=== PATIENT | male | born 1995 | race American Indian/Alaskan Native ===

== ENCOUNTER 2021-08-13 11:21 | Emergency (ER) | payer SELFPAY | END 2021-08-13 11:25 | disposition left against medical advice (07) | LOC: ED 11:21 | DX: H57.89 Other specified disorders of eye and adnexa (principal); Z53.21 Procedure and treatment not carried out due to patient leaving prior to being seen by health care provider ==

== ENCOUNTER 2021-11-24 05:07 | Inpatient (IN) | payer MEDICAID ==
[2021-11-24 06:16] LABS: Bilirubin,Urine NEG (Negative); Blood,Urine MOD (Negative); Color,Urine Yellow (Yellow); Mucus,Urine FEW /HPF; Urobilinogen,Urine < 2.0 mg/dL (<2.0); WBC,Urine < 1.0 /HPF (0.0-6.0)
[2021-11-24] MEDS ORDERED: SODIUM CHLORIDE 0.9% 1000 ML 1,000 ML IV ONE (06:18)
[2021-11-24 06:24] LABS: Amphetamine Screen,Urine Negative; Benzodiazepines Screen,Urine Negative; Methadone Screen,Urine Negative; Opiate Screen,Urine Negative
[2021-11-24 06:31] LABS: Hematocrit 41.3 % (35.5-45.6); Hemoglobin 13.7 gm/dl (11.8-15.2); Mean Corpuscular HGB Conc 33 % (32-34); Mean Corpuscular Volume 89 fl (84-94); Platelet Count 268 K/mm3 (140-440); Red Blood Count 4.62 M/mm3 (3.65-5.03); Red Cell Distribution Width 14.1 % (13.2-15.2)
[2021-11-24 06:36] LABS: BUN/Creatinine Ratio 9; Blood Urea Nitrogen 12 mg/dL (9-20); Hemolysis Index 11
[2021-11-24 06:47] LABS: Cannabinoid Screen,Urine Positive; Cocaine Screen,Urine Positive
--- NOTE | 2021-11-24 06:53 | XRay Report ---
Chest single view INDICATION: Dyspnea IMPRESSION: Severe bilateral airspace pneumonia concerning for sprain is pneumonia bilaterally Signer Name: Jaden Daly MD Signed: 11/24/2021 6:48 AM Workstation Name: [id number]
[2021-11-24] MEDS ORDERED: cefTRIAXone/NS 1 GM/50 ML 1 GM/50 ML BAG IV ONE (07:20)
[2021-11-24 07:42] LABS: Alanine Aminotransferase 48 units/L (7-56); Albumin 3.9 g/dL (3.9-5); BUN/Creatinine Ratio 9; Blood Urea Nitrogen 12 mg/dL (9-20); Calcium 8.4 mg/dL (8.4-10.2); Hemolysis Index 6
[2021-11-24] MEDS ORDERED: POTASSIUM CHLORIDE 10 MEQ 10 MEQ/100 ML BAG IV ONE (08:02)
--- NOTE | 2021-11-24 08:17 | Emergency Department Report ---
History of Present Illness - General Chief Complaint: Overdose Stated Complaint: OVERDOSE Time Seen by Provider: 11/24/21 06:05 Source: patient Mode of arrival: Stretcher Limitations: No Limitations - History of Present Illness Initial Comments: Roommate called EMS for unresponsive pt. Was given Narcan 2mg and woke up. Nasal trumpet on right nostril. Alert and responsive. Speech garbled. -: Gradual, days(s) Treatments Prior to Arrival: none - Related Data Allergies Allergy/AdvReac Type Severity Reaction Status Date / Time No Known Allergies Allergy Unverified 11/24/21 05:59 ED Review of Systems ROS: Stated complaint: OVERDOSE Other details as noted in HPI Constitutional: denies: chills, fever Eyes: denies: eye pain, eye discharge, vision change ENT: denies: ear pain, throat pain Respiratory: denies: cough, shortness of breath, wheezing Cardiovascular: denies: chest pain, palpitations Endocrine: no symptoms reported Gastrointestinal: denies: abdominal pain, nausea, diarrhea Genitourinary: denies: urgency, dysuria Musculoskeletal: denies: back pain, joint swelling, arthralgia Skin: denies: rash, lesions Neurological: denies: headache, weakness, paresthesias Psychiatric: denies: anxiety, depression Hematological/Lymphatic: denies: easy bleeding, easy bruising ED Past Medical Hx - Past Medical History Previous Medical History?: Yes Hx Hypertension: No Hx CVA: No Hx HIV: Yes - Surgical History Past Surgical History?: No - Social History Smoking Status: Current Every Day Smoker Substance Use Type: Marijuana ED Physical Exam - General Limitations: No Limitations General appearance: anxious, in distress - Head Head exam: Present: atraumatic, normocephalic - Eye Eye exam: Present: normal appearance - Neck Neck exam: Present: normal inspection - Respiratory Respiratory exam: Present: normal lung sounds bilaterally, rales. Absent: respiratory distress - Cardiovascular Cardiovascular Exam: Present: regular rate, normal rhythm. Absent: systolic murmur, diastolic murmur, rubs, gallop - GI/Abdominal GI/Abdominal exam: Present: soft, normal bowel sounds - Rectal Rectal exam: Present: deferred - Extremities Exam Extremities exam: Present: normal inspection - Back Exam Back exam: Present: normal inspection - Neurological Exam Neurological exam: Present: alert, oriented X3 - Psychiatric Psychiatric exam: Present: normal affect, normal mood - Skin Skin exam: Present: warm, dry, intact, normal color. Absent: rash ED Course Vital Signs 11/24/21 11/24/21 05:33 07:43 Temperature 98 F 98 F Pulse Rate 106 H 98 H Respiratory 18 18 Rate Blood Pressure 148/82 O2 Sat by Pulse 99 95 Oximetry ED Medical Decision Making - Lab Data Result diagrams: 11/24/21 06:08 11/24/21 06:30 Critical care attestation.: If time is entered above; I have spent that time in minutes in the direct care of this critically ill patient, excluding procedure time. ED Disposition Clinical Impression: Overdose, Suicide attempt, Pneumonia Disposition: 09 ADMITTED INPATIENT Is pt being admited?: No Does the pt Need Aspirin: No Condition: Stable Instructions: Bacterial Pneumonia (ED)
--- NOTE | 2021-11-24 08:22 | History and Physical Report ---
History of Present Illness Date of examination: 11/24/21 Date of admission: 11/24/2021 Chief complaint: Toxic metabolic encephalopathy/cocaine overdose History of present illness: 26-year-old male patient was brought to the emergency room with unresponsiveness and toxic metabolic encephalopathy as per ER note, patient was unresponsive in his room and his roommate called EMS who in turn brought him to [facility] emergency room. Patient was severely hypoxemic requiring high flow nasal cannula oxygen. Initially ER physician felt that patient was an intentional drug overdose When I evaluated the patient, patient was more alert and awake denies any suicidal thoughts or ideation Reports that he had a lot of stressors and consumed a lot of cocaine and marijuana. Patient denies chest pain or shortness of breath Patient denies headache dizziness weakness or numbness Initial evaluation in the ED findings consistent with acute hypoxemic respi ratory failure Requiring high flow nasal cannula oxygen 22 L. Patient has bilateral pneumonia on chest x-ray started on empiric antibiotics As well as severe hypokalemia, can be replaced per protocol Past History Past Medical History: No medical history, other (Ongoing tobacco use) Past Surgical History: No surgical history Social history: smoking, alcohol abuse, other (Recreational drug use cocaine and marijuana) Family history: no significant family history Medications and Allergies Allergies Allergy/AdvReac Type Severity Reaction Status Date / Time No Known Allergies Allergy Unverified 11/24/21 05:59 Active Meds: Active Medications Potassium Chloride (Kcl 10meq/100ml) 10 meq in 100 mls @ 100 mls/hr IV ONCE ONE Stop: 11/24/21 09:01 Review of Systems Constitutional: weight loss, no weight gain, no fever, no chills Ears, nose, mouth and throat: no nasal congestion, no nasal discharge Cardiovascular: orthopnea, shortness of breath, no chest pain, no palpitations, no lightheadedness Respiratory: shortness of breath, no cough, no cough with sputum, no excessive sputum Gastrointestinal: no nausea, no vomiting Genitourinary Male: no dysuria, no hematuria Musculoskeletal: muscle weakness Integumentary: no rash, no lesions Neurological: weakness, parathesias, numbness Psychiatric: anxiety, depression Endocrine: no cold intolerance, no heat intolerance, no polyphagia, no excessive thirst Hematologic/Lymphatic: no easy bruising, no easy bleeding Allergic/Immunologic: no urticaria, no allergic rhinitis Exam - Constitutional Vitals: Temp Pulse Resp BP Pulse Ox 98 F 98 H 18 148/82 95 11/24/21 07:43 11/24/21 07:43 11/24/21 07:43 11/24/21 05:33 11/24/21 07:43 General appearance: Present: no acute distress, cachectic, other - EENT Eyes: Present: PERRL, EOM intact - Neck Neck: Present: supple, normal ROM - Respiratory Respiratory effort: normal Respiratory: bilateral: diminished, rhonchi, negative: rales, wheezing - Cardiovascular Rhythm: regular Heart Sounds: Present: S1 & S2 - Extremities Extremities: no ischemia, No edema - Abdominal General gastrointestinal: Present: soft, non-tender, non-distended, normal bowel sounds - Integumentary Integumentary: Present: clear, warm - Musculoskeletal Musculoskeletal: generalized weakness - Psychiatric Psychiatric: appropriate mood/affect, cooperative (Confused at times) - Neurologic Neurologic: moves all extremities HEART Score - HEART Score Troponin: Troponin T 0.021 ng/mL (0.00-0.029) 11/24/21 06:30 Results - Labs CBC & Chem 7: 11/24/21 06:08 11/24/21 06:30 Labs: Abnormal lab results 11/24/21 11/24/21 11/24/21 Range/Units 06:08 06:08 06:08 WBC (4.5-11.0) K/mm3 Sodium 133 L (137-145) mmol/L Potassium 3.0 L (3.6-5.0) mmol/L Chloride 97.8 L (98-107) mmol/L Carbon Dioxide 21 L (22-30) mmol/L Glucose 320 H (75-100) mg/dL Lactic Acid (0.7-2.0) mmol/L Calcium 8.0 L (8.4-10.2) mg/dL AST (5-40) units/L Total Creatine Kinase (55-170) units/L Total Protein (6.3-8.2) g/dL Salicylates < 0.3 L (2.8-20.0) mg/dL Acetaminophen 5.0 L (10.0-30.0) ug/mL 11/24/21 11/24/21 11/24/21 Range/Units 06:08 06:30 06:30 WBC 13.5 H (4.5-11.0) K/mm3 Sodium (137-145) mmol/L Potassium 2.8 L* (3.6-5.0) mmol/L Chloride (98-107) mmol/L Carbon Dioxide (22-30) mmol/L Glucose 267 H (75-100) mg/dL Lactic Acid 4.60 H* (0.7-2.0) mmol/L Calcium (8.4-10.2) mg/dL AST 78 H (5-40) units/L Total Creatine Kinase 441 H (55-170) units/L Total Protein 9.8 H (6.3-8.2) g/dL Salicylates (2.8-20.0) mg/dL Acetaminophen (10.0-30.0) ug/mL Assessment and Plan --Acute hypoxic respiratory failure; On high flow nasal cannula oxygen 22 L Wean as tolerated, home O2 evaluation at discharge Pulmonary consulted informed Dr. Parry. --Bilateral pneumonia; probably community-acquired Empiric antibiotics Rocephin and Zithromax Blood cultures, rule out COVID-19 Mi PCR requested --PUI; high suspicion for COVID-19 Droplet and contact isolation Mi PCR test, Inflammatory markers Procalcitonin --Intentional drug overdose/suicidal attempt/patient denied Patient reports that he was under a lot of stress And took a lot of cocaine, Denies suicidal thoughts or ideation Psych evaluated the patient, discontinued 1013 --Cocaine overdose; Supportive care, Counseling done strongly advised not to use Recreational drug use, Patient verbalized understanding --Hyperglycemia; No history of diabetes, Accu-Cheks sliding scale coverage Hemoglobin A1c, long-acting insulin as needed --Severe hypokalemia; potassium 2.8 Replenished with IV and oral KCl check magnesium Monitor electrolytes --Ongoing tobacco use; Smoking cessation counseling done Advised nicotine patch Risks and complications and side effects of ongoing tobacco use explained to the patient He verbalized understanding, spending 15 minutes --Recreational drug use[cocaine, marijuana]; Strongly advised to quit recreational drug use cocaine and marijuana Patient verbalized understanding --DVT prophylaxis Subcu Lovenox Psych evaluation and recommendation appreciated Rescinded 1013 status Follow mi PCR test We will closely monitor the patient and adjust management as needed Plan of care reviewed with the patient and his nurse. Follow pulmonary advertising consultant recommendations Brief history and hospital course 11/25/2019 :26-year-old -[place] male patient was admitted through emergency room with acute toxic metabolic encephalopathy, cocaine overdose Severe hypoxemic respiratory failure on high flow nasal cannula oxygen, bilateral pneumonia, mi PCR test sent pending, pulmonary consulted Disposition; follow pulmonary evaluation recommendations, follow pending tests discharge patient when medically stable
--- NOTE | 2021-11-24 08:34 | Consultation ---
History of Present Illness - Reason for Consult Consult date: 11/24/21 Reason for consult: Cocaine OD - History of Present Psychiatric Illness The patient was seen today. He was brought in after being found unresponsive. During the evaluation of the patient is awake, but drowsy. His friend is at bedside. He gives me permission to speak in front of him. The patient verbalized using cocaine. He denies trying to do self harm, but states he "was getting high." The patient denies any past psych history or being on psych meds. He does admit that this has happened before where he's taking too much cocaine. He states "but I wasn't trying to kill myself at all." He denies SI/HI or hallucinations of any kind. He denies alcohol and says he smokes "like 4 cigarets daily." The patient says he "lives with his friend." PAST PSYCHIATRIC HISTORY Diagnoses: Denies Suicide attempts or Self-harm behavior: Denies Prior psychiatric hospitalizations: Denies Substance Abuse history: Cocaine Previous psychiatric medications tried: Denies Outpatient treatment: Denies PAST MEDICAL HISTORY: None reported Family Psychiatric History: None reported or documented SOCIAL HISTORY Living arrangement: with friend Marital status: Single Employment status: Employed REVIEW OF SYSTEMS Constitutional: Negative for weight loss ENT: Negative for stridor Respiratory: Negative for cough or hemoptysis All other systems reviewed and are negative MENTAL STATUS EXAMINATION General Appearance and Behavior: Age appropriate, good hygiene, wearing appropriate clothes, good eye contact, calm, cooperative, drowsy Cooperation: Participating/engaged, but Guarded Psychomotor Behavior: Psychomotor normal Mood: okay Affect and affective range: congruent with stated mood Thought Process: goal directed Thought Content: None Speech: normal tone and pace Suicidal Ideation: Denies Homicidal Ideation: Denies Hallucinations: Denies Delusions: None elicited Impulse Control: Normal Insight and Judgment: Limited insight and judgment Memory: Limited Attention: divided Orientation: Alert, oriented Assessment and Plan Cocaine Dependence with Overdose Treatment Plan d/c 1013 Sitter: per primary Medical: defer to primary Disposition: Do not recommend acute psychiatric inpatient treatment. The multiple tube winding machine operator to give the patient resources for drug rehab The patient to abstain from all illicit drug use Will sing off. Thanks Case staffed with Dr. Mcbride Medications and Allergies Allergies Allergy/AdvReac Type Severity Reaction Status Date / Time No Known Allergies Allergy Unverified 11/24/21 05:59 Active Meds: Active Medications Potassium Chloride (Kcl 10meq/100ml) 10 meq in 100 mls @ 100 mls/hr IV ONCE ONE Stop: 11/24/21 09:01 Last Admin: 11/24/21 08:27 Dose: 100 mls/hr Mental Status Exam - Vital signs Last Vital Signs Temp 98 F 11/24/21 07:43 Pulse 98 H 11/24/21 07:43 Resp 18 11/24/21 07:43 BP 148/82 11/24/21 05:33 Pulse Ox 95 11/24/21 07:43 Results Result Diagrams: 11/24/21 06:08 11/24/21 06:30 Abnormal lab results 11/24/21 11/24/21 11/24/21 Range/Units 06:08 06:08 06:08 WBC (4.5-11.0) K/mm3 Sodium 133 L (137-145) mmol/L Potassium 3.0 L (3.6-5.0) mmol/L Chloride 97.8 L (98-107) mmol/L Carbon Dioxide 21 L (22-30) mmol/L Glucose 320 H (75-100) mg/dL Lactic Acid (0.7-2.0) mmol/L Calcium 8.0 L (8.4-10.2) mg/dL AST (5-40) units/L Total Creatine Kinase (55-170) units/L Total Protein (6.3-8.2) g/dL Salicylates < 0.3 L (2.8-20.0) mg/dL Acetaminophen 5.0 L (10.0-30.0) ug/mL 11/24/21 11/24/21 11/24/21 Range/Units 06:08 06:30 06:30 WBC 13.5 H (4.5-11.0) K/mm3 Sodium (137-145) mmol/L Potassium 2.8 L* (3.6-5.0) mmol/L Chloride (98-107) mmol/L Carbon Dioxide (22-30) mmol/L Glucose 267 H (75-100) mg/dL Lactic Acid 4.60 H* (0.7-2.0) mmol/L Calcium (8.4-10.2) mg/dL AST 78 H (5-40) units/L Total Creatine Kinase 441 H (55-170) units/L Total Protein 9.8 H (6.3-8.2) g/dL Salicylates (2.8-20.0) mg/dL Acetaminophen (10.0-30.0) ug/mL All other labs normal.
[2021-11-24 08:52] LABS: ABG HCO3 21.9 mmol/L (20.0-26.0); ABG Methemoglobin 0.6 % (0.0-1.5); ABG Oxygen Saturation 84.4 % (95.0-99.0); ABG PCO2 57.4 mm Hg; ABG PO2 56.1 mm Hg (80.0-90.0)
[2021-11-24 08:59] LABS: ABG PH 7.199 pH Units (7.350-7.450)
[2021-11-24 09:07] LABS: Band Neutrophils # (Manual) 0.8 K/mm3; Basophils % (Manual) 0 % (0.0-1.8); Eosinophils % (Manual) 0 % (0.0-4.3); Myelocytes # (Manual) 0.1 K/mm3; Total Cells Counted 100
[2021-11-24 09:08] LABS: Platelet Clumps Few; Platelet Estimate Consistent w Auto
[2021-11-24] MEDS ORDERED: SODIUM CHLORIDE 0.9% 1000 ML 1,000 ML IV SCH (10:00)
[2021-11-24] MEDS ORDERED: MORPHINE 4 MG/1 ML INJ IV PRN (10:00)
[2021-11-24] MEDS ORDERED: oxyCODONE /ACETAMINOPHEN 5-325MG TAB PO PRN (10:00)
[2021-11-24] MEDS ORDERED: ACETAMINOPHEN 325 MG TAB PO PRN (10:00)
[2021-11-24] MEDS ORDERED: NALOXONE 0.4 MG/1 ML INJ IV PRN (10:00)
[2021-11-24] MEDS ORDERED: ONDANSETRON 4 MG/2 ML INJ IV PRN ×2 (10:00→17:31)
[2021-11-24] MEDS: AZITHROMYCIN/NS 500 MG/250 ML 500 MG/250 ML BAG IV SCH (13:35)
[2021-11-24] MEDS: ENOXAPARIN 40 MG/0.4 ML INJ SUB-Q SCH (13:36)
[2021-11-24] MEDS: FAMOTIDINE 20 MG/2 ML INJ IV SCH ×2 (13:36→22:52)
[2021-11-24] MEDS ORDERED: POTASSIUM CHLORIDE ER 20 MEQ TAB PO SCH (14:00)
[2021-11-24] MEDS ORDERED: CALCIUM GLUCONATE 1,000 MG in SODIUM CHLORIDE 0.9% 100 ML IV ONE (17:27)
--- NOTE | 2021-11-24 17:36 | Event Note ---
Date: 11/24/21 Patient complains of some nausea and vomiting, advised Zofran 4 mg every 4 hours as needed for nausea vomiting Potassium levels 6.1, probably verbal correction, calcium gluconate 1 g IV, closely monitor electrolytes Patient remains on high flow nasal cannula oxygen, 22 L, saturating well Mi PCR test is negative. Pulmonary Dr. Parry consulted. We will closely monitor the patient and adjust the management as needed We will plan follow-up chest x-ray tomorrow morning if needed Plan of care reviewed with the patient and his nurse
[2021-11-24 18:08] LABS: C-Reactive Protein < 0.30 mg/dL (0.00-1.30)
[2021-11-24 18:33] LABS: ABG Base Excess -3.7 mmol/L (-2.0-3.0); ABG HCO3 20.4 mmol/L (20.0-26.0); ABG Methemoglobin 0.6 % (0.0-1.5); ABG Oxygen Saturation 97.1 % (95.0-99.0); ABG PCO2 34.3 mm Hg; ABG PH 7.392 pH Units (7.350-7.450); ABG PO2 94.8 mm Hg (80.0-90.0)
--- NOTE | 2021-11-24 21:05 | Cat Scan Report ---
CTA CHEST WITH CONTRAST INDICATION / CLINICAL INFORMATION: Ac.hypoxic resp failure/elevated D-dimer/r/o PE. TECHNIQUE: Axial CT images were obtained through the chest after injection of 100 cc of Omnipaque 350 IV contrast. 3 plane MIP and/or 3D reconstructions were produced. All CT scans at this location are performed using CT dose reduction for ALARA by means of automated exposure control. COMPARISON: Chest radiograph dated 11/24/2021 FINDINGS: PULMONARY ARTERIES: No pulmonary emboli. THORACIC AORTA: No significant abnormality. HEART: No significant abnormality. CORONARY ARTERY CALCIFICATION: None. MEDIASTINUM / KRISS: No significant abnormality. PLEURA: No pleural effusion. No pneumothorax. LUNGS: There are extensive bilateral airspace opacities involving upper and lower lobes predominantly with small amount of airspace opacity in the right middle lobe. ADDITIONAL FINDINGS: None. UPPER ABDOMEN: No acute findings. SKELETAL STRUCTURES: No acute abnormality IMPRESSION: 1. There are diffuse bilateral airspace opacities likely representing pneumonia. Possibility of aspir ation is considered. 2. No pulmonary embolus is seen. Signer Name: Cesar Mcbride MD Signed: 11/24/2021 9:01 PM Workstation Name: [id number]
[2021-11-24] MEDS: INSULIN LISPRO 100 UNIT/ML SUB-Q SCH (22:51)
[2021-11-24] MEDS: methylPREDNISolone Sod Succinate 40 MG/1 ML INJ IV SCH (22:52)
[2021-11-25] MEDS: methylPREDNISolone Sod Succinate 40 MG/1 ML INJ IV SCH (05:39)
[2021-11-25] MEDS: INSULIN LISPRO 100 UNIT/ML SUB-Q SCH ×4 (08:00→22:00)
[2021-11-25 09:12] LABS: Hematocrit 36.1 % (35.5-45.6); Hemoglobin 12.2 gm/dl (11.8-15.2); Mean Corpuscular HGB Conc 34 % (32-34); Mean Corpuscular Volume 88 fl (84-94); Platelet Count 220 K/mm3 (140-440); Red Blood Count 4.12 M/mm3 (3.65-5.03); Red Cell Distribution Width 14.1 % (13.2-15.2)
[2021-11-25 09:33] LABS: Alanine Aminotransferase 38 units/L (7-56); Albumin 3.4 g/dL (3.9-5); BUN/Creatinine Ratio 13; Blood Urea Nitrogen 15 mg/dL (9-20); Calcium 8.6 mg/dL (8.4-10.2); Hemolysis Index 6
[2021-11-25 10:02] LABS: Band Neutrophils # (Manual) 1.2 K/mm3; Basophils % (Manual) 0 % (0.0-1.8); Eosinophils % (Manual) 0 % (0.0-4.3); Monocytes % (Manual) 0 % (0.0-7.3); Total Cells Counted 100
[2021-11-25 10:03] LABS: Platelet Estimate Consistent w Auto; RBC Morphology Normal
--- NOTE | 2021-11-25 11:14 | Consultation ---
History of Present Illness Consult date: 11/25/21 Reason for consult: hypoxemia, abnormal CXR/CT History of present illness: 26 y/o aAM admitted with acute respiratory failure. Patient was doing cocaine, THC and Percocet. UDS only positive for Cocaine. Was doing drugs with roommate. He then passed out and woke up in ED. Was doing drugs as his partner is incarcerated and he is stressed about this. He does have HIV and TB. Currently Bictarvy. He has never overdosed on drugs before and he is not trying to hurt himself or any one else. he does suffer from depression. Past History Past Medical History: No medical history, HIV/AIDS, other (depression, polystubstance abuse) Past Surgical History: No surgical history Social history: smoking, alcohol abuse, other (Recreational drug use cocaine and marijuana) Family history: no significant family history Medications and Allergies Allergies Allergy/AdvReac Type Severity Reaction Status Date / Time No Known Allergies Allergy Unverified 11/24/21 05:59 Active Meds: Active Medications Acetaminophen (Acetaminophen 325 Mg Tab) 650 mg PO Q4H PRN PRN Reason: Pain MILD(1-3)/Fever >100.5/BLACK Enoxaparin Sodium (Enoxaparin 40 Mg/0.4 Ml Inj) 40 mg SUB-Q QDAY [facility] Last Admin: 11/24/21 13:36 Dose: 40 mg Famotidine (Famotidine 20 Mg/2 Ml Inj) 20 mg IV BID [facility] Last Admin: 11/24/21 22:52 Dose: 20 mg Sodium Chloride (Nacl 0.9% 1000 Ml) 1,000 mls @ 75 mls/hr IV DIRECT [facility] Last Admin: 11/25/21 01:37 Dose: 75 mls/hr Azithromycin (Zithromax/Ns) 500 mg in 250 mls @ 250 mls/hr IV Q24H [facility] Stop: 11/28/21 11:59 Last Admin: 11/24/21 13:35 Dose: 250 mls/hr Ceftriaxone Sodium (Rocephin/Ns 2 Gm/100 Ml) 2 gm in 100 mls @ 200 mls/hr IV Q24HR [facility]OMA; Protocol Insulin Human Lispro (Insulin Lispro 100 Unit/Ml) 0 unit SUB-Q ACHS [facility]OMA; Prot ocol Last Admin: 11/24/21 22:51 Dose: Not Given Methylprednisolone Sodium Succinate (Methylprednisolone Sod Succinate 40 Mg/1 Ml Inj) 40 mg IV Q8HR [facility] Last Admin: 11/25/21 05:39 Dose: 40 mg Morphine Sulfate (Morphine 4 Mg/1 Ml Inj) 2 mg IV Q4H PRN PRN Reason: Pain , Severe (7-10) Naloxone HCl (Naloxone 0.4 Mg/1 Ml Inj) 0.1 mg IV Q2MIN PRN PRN Reason: Res Rate </= 8 or 02 SAT < 92% Ondansetron HCl (Ondansetron 4 Mg/2 Ml Inj) 4 mg IV Q4H PRN PRN Reason: Nausea And Vomiting Oxycodone/Acetaminophen (Oxycodone /Acetaminophen 5-325mg Tab) 1 tab PO Q6H PRN PRN Reason: Pain, Moderate (4-6) Sodium Chloride (Sodium Chloride 0.9% 10 Ml Flush Syringe) 10 ml IV BID [facility] Last Admin: 11/24/21 22:52 Dose: 10 ml Sodium Chloride (Sodium Chloride 0.9% 10 Ml Flush Syringe) 10 ml IV PRN PRN PRN Reason: LINE FLUSH Review of Systems All systems: negative Ears, nose, mouth and throat: deferred Respiratory: shortness of breath Integumentary: other (bump on forehead, persistent) Physical Examination Vital signs: Vital Signs Temp Pulse Resp BP Pulse Ox 98 F 106 H 18 148/82 99 11/24/21 05:33 11/24/21 05:33 11/24/21 05:33 11/24/21 05:33 11/24/21 05:33 General appearance: no acute distress, alert, other (wants to go home) Eyes: non-icteric ENT: oropharynx moist Neck: supple Effort: normal Ascultation: Bilateral: rales Percussion: Bilateral: not dull Tactile fremitus: Bilateral: diminished Cardiovascular: regular rate and rhythm Gastrointestinal: normoactive bowel sounds Results - Laboratory Findings CBC and BMP: 11/25/21 08:51 11/25/21 08:51 ABG ABG pH 7.392 pH Units (7.350-7.450) 11/24/21 18:15 ABG pCO2 34.3 mm Hg 11/24/21 18:15 ABG pO2 94.8 mm Hg (80.0-90.0) H 11/24/21 18:15 ABG O2 Saturation 97.1 % (95.0-99.0) 11/24/21 18:15 PT/INR, D-dimer PT 14.3 Sec. (12.2-14.9) 11/24/21 06:30 INR 1.00 (0.87-1.13) 11/24/21 06:30 D-Dimer 571.39 ng/mlDDU (0-234) H 11/24/21 18:25 Abnormal lab findings: Abnormal Labs 11/24/21 11/24/21 11/24/21 06:08 06:08 06:08 WBC Seg Neuts % (Manual) Lymphocytes % (Manual) Seg Neutrophils # Man Lymphocytes # (Manual) D-Dimer ABG pH ABG pO2 ABG O2 Saturation ABG Base Excess Oxyhemoglobin Sodium 133 L Potassium 3.0 L Chloride 97.8 L Carbon Dioxide 21 L Glucose 320 H POC Glucose Lactic Acid Calcium 8.0 L AST Lactate Dehydrogenase Total Creatine Kinase Total Protein Albumin Salicylates < 0.3 L Acetaminophen 5.0 L 11/24/21 11/24/21 11/24/21 06:08 06:30 06:30 WBC 13.5 H Seg Neuts % (Manual) 87.0 H Lymphocytes % (Manual) 4.0 L Seg Neutrophils # Man 11.7 H Lymphocytes # (Manual) 0.5 L D-Dimer ABG pH ABG pO2 ABG O2 Saturation ABG Base Excess Oxyhemoglobin Sodium Potassium 2.8 L* Chloride Carbon Dioxide Glucose 267 H POC Glucose Lactic Acid 4.60 H* Calcium AST 78 H Lactate Dehydrogenase Total Creatine Kinase 441 H Total Protein 9.8 H Albumin Salicylates Acetaminophen 11/24/21 11/24/21 11/24/21 06:30 08:20 09:09 WBC Seg Neuts % (Manual) Lymphocytes % (Manual) Seg Neutrophils # Man Lymphocytes # (Manual) D-Dimer ABG pH 7.199 L* ABG pO2 56.1 L ABG O2 Saturation 84.4 L ABG Base Excess -7.0 L Oxyhemoglobin 80.8 L Sodium Potassium Chloride Carbon Dioxide Glucose POC Glucose Lactic Acid 5.10 H* Calcium AST Lactate Dehydrogenase 300 H Total Creatine Kinase Total Protein Albumin Salicylates Acetaminophen 11/24/21 11/24/21 11/24/21 16:33 16:33 18:15 WBC Seg Neuts % (Manual) Lymphocytes % (Manual) Seg Neutrophils # Man Lymphocytes # (Manual) D-Dimer ABG pH ABG pO2 94.8 H ABG O2 Saturation ABG Base Excess -3.7 L Oxyhemoglobin Sodium Potassium 6.1 H* D Chloride Carbon Dioxide Glucose POC Glucose Lactic Acid 2.10 H* Calcium AST Lactate Dehydrogenase Total Creatine Kinase Total Protein Albumin Salicylates Acetaminophen 11/24/21 11/24/21 11/24/21 18:25 22:50 23:26 WBC Seg Neuts % (Manual) Lymphocytes % (Manual) Seg Neutrophils # Man Lymphocytes # (Manual) D-Dimer 571.39 H ABG pH ABG pO2 ABG O2 Saturation ABG Base Excess Oxyhemoglobin Sodium Potassium Chloride Carbon Dioxide Glucose POC Glucose 139 H Lactic Acid 2.40 H* Calcium AST Lactate Dehydrogenase Total Creatine Kinase Total Protein Albumin Salicylates Acetaminophen 11/25/21 11/25/21 11/25/21 07:36 08:51 08:51 WBC 11.5 H Seg Neuts % (Manual) 84.0 H Lymphocytes % (Manual) 6.0 L Seg Neutrophils # Man 9.7 H Lymphocytes # (Manual) 0.7 L D-Dimer ABG pH ABG pO2 ABG O2 Saturation ABG Base Excess Oxyhemoglobin Sodium 135 L Potassium Chloride Carbon Dioxide Glucose 148 H POC Glucose 151 H Lactic Acid Calcium AST Lactate Dehydrogenase Total Creatine Kinase Total Protein 8.5 H Albumin 3.4 L Salicylates Acetaminophen - Diagnostic Findings Chest x-ray: image reviewed CT scan - chest: image reviewed Assessment and Plan 26 y/o male with known HIV and currently on treatment for TB admitted with acute respiratory failure secondary to likely aspiration after drug use, not trying to harm himself 1. Stopped steroids 2. Wean FiO2 for sats >88% 3. Resume HIV therapy and TB therapy 4. If abx are felt to be needed, suggest using something with better anaerobic coverage 5. Incentive gisel, OOB to chair, ambulate in room 6. Will continue to follow.
--- NOTE | 2021-11-25 12:39 | Progress Note ---
Assessment and Plan Assessment and plan: 26-year-old male patient was brought to the emergency room with unresponsiveness and toxic metabolic encephalopathy as per ER note, patient was unresponsive in his room and his roommate called EMS who in turn brought him to [facility] emergency room. Patient was severely hypoxemic requiring high flow nasal cannula oxygen. Initially ER physician felt that patient was an intentional drug overdose When I evaluated the patient, patient was more alert and awake denies any suicidal thoughts or ideation Reports that he had a lot of stressors and consumed a lot of cocaine and mariju olimpia. Patient denies chest pain or shortness of breath Patient denies headache dizziness weakness or numbness Initial evaluation in the ED findings consistent with acute hypoxemic respiratory failure Requiring high flow nasal cannula oxygen 22 L. Patient has bilateral pneumonia on chest x-ray started on empiric antibiotics As well as severe hypokalemia, can be replaced per protocol 11/25/2019 :26-year-old -[place] male patient was admitted through emergency room with acute toxic metabolic encephalopathy, cocaine overdose Severe hypoxemic respiratory failure on high flow nasal cannula oxygen, bilateral pneumonia, mi PCR test sent pending, pulmonary consulted 11/25: Patient seen by pulmonary team. Information available to us this morning states that the patient is currently undergoing treatment for tuberculosis. We will proceed with consulting ID along with following plan by pulmonary. Continue to wean oxygen as tolerated incentive spirometer. Continue HIV treatment and management. Continue isolation precautions. Lactic acidosis improved Disposition; follow pulmonary evaluation recommendations, follow pending tests discharge patient when medically stable --Acute hypoxic respiratory failure; On high flow nasal cannula oxygen 22 L Wean as tolerated, home O2 evaluation at discharge Pulmonary consulted informed Dr. Parry. --Bilateral pneumonia; probably community-acquired Empiric antibiotics Rocephin and Zithromax Blood cultures, rule out COVID-19 Mi PCR requested --PUI; high suspicion for COVID-19 Droplet and contact isolation Mi PCR test, Inflammatory markers Procalcitonin --Intentional drug overdose/suicidal attempt/patient denied Patient reports that he was under a lot of stress And took a lot of cocaine, Denies suicidal thoughts or ideation Psych evaluated the patient, discontinued 1013 --Cocaine overdose; Supportive care, Counseling done strongly advised not to use Recreational drug use, Patient verbalized understanding --Hyperglycemia; No history of diabetes, Accu-Cheks sliding scale coverage Hemoglobin A1c, long-acting insulin as needed --Severe hypokalemia; potassium 2.8 Replenished with IV and oral KCl check magnesium Monitor electrolytes --Ongoing tobacco use; Smoking cessation counseling done Advised nicotine patch Risks and complications and side effects of ongoing tobacco use explained to the patient He verbalized understanding, spending 15 minutes --Recreational drug use[cocaine, marijuana]; Strongly advised to quit recreational drug use cocaine and marijuana Patient verbalized understanding --DVT prophylaxis Subcu Lovenox Psych evaluation and recommendation appreciated Rescinded 1013 status Follow mi PCR test We will closely monitor the patient and adjust management as needed Plan of care reviewed with the patient and his nurse. Follow pulmonary homemaking rehabilitation consultant recommendations Mi PCR test is negative Elevated D-dimers; check CTA chest to rule out PE urgent Lower extremity venous Doppler to rule out DVT in the morning Patient will be admitted to telemetry floor Discussed with nurse, but controlled The high probability of a clinically significant, sudden or life threatening deterioration of the [pulmonary] system(s) required my full and direct attention, intervention and personal management. The aggregate critical care ti me was [35] minutes. This time is in addition to time spent performing reported procedures but includes the following: [x] Data Review and interpretation [x] Patient assessment and monitoring of vital signs [x] Documentation [x] Medication orders and management History Interval history: Patient seen and examined this morning not in any acute distress although still on high flow at 35 L and 70% Hospitalist Physical - Physical exam Narrative exam: VITAL SIGNS: Reviewed. GENERAL: The patient appears normally developed, Vital signs as documented. HEAD: No signs of head trauma. EYES: Pupils are equal. Extraocular motions intact. EARS: Hearing grossly intact. MOUTH: Oropharynx is normal. NECK: No adenopathy, no JVD. CHEST: Chest with clear breath sounds bilaterally. No wheezes, rales, or rhonchi. CARDIAC: Regular rate and rhythm. S1 and S2, without murmurs, gallops, or rubs. VASCULAR: No Edema. Peripheral pulses normal and equal in all extremities. ABDOMEN: Soft, non tender and non distended. No rebound or guarding, and no masses palpated. Bowel Sounds normal. MUSCULOSKELETAL: Good range of motion of all major joints. Extremities without clubbing, cyanosis or edema. NEUROLOGIC EXAM: Alert and oriented x 3 No focal sensory or strength deficits. Speech normal. Follows commands. PSYCHIATRIC: Mood normal. SKIN: detail exam as documented in skin assessment - Constitutional Vitals: Temp Pulse Resp BP Pulse Ox 99.0 F 90 16 128/33 96 11/25/21 11:35 11/25/21 11:35 11/25/21 11:35 11/25/21 11:35 11/25/21 11:35 General appearance: Present: no acute distress, cachectic, other HEART Score - HEART Score Troponin: Troponin T 0.021 ng/mL (0.00-0.029) 11/24/21 06:30 Results - Labs CBC & Chem 7: 11/25/21 08:51 11/25/21 08:51 Labs: Laboratory Last Values WBC 11.5 K/mm3 (4.5-11.0) H 11/25/21 08:51 RBC 4.12 M/mm3 (3.65-5.03) 11/25/21 08:51 Hgb 12.2 gm/dl (11.8-15.2) 11/25/21 08:51 Hct 36.1 % (35.5-45.6) 11/25/21 08:51 MCV 88 fl (84-94) 11/25/21 08:51 MCH 30 pg (28-32) 11/25/21 08:51 MCHC 34 % (32-34) 11/25/21 08:51 RDW 14.1 % (13.2-15.2) 11/25/21 08:51 Plt Count 220 K/mm3 (140-440) 11/25/21 08:51 Add Manual Diff Complete 11/25/21 08:51 Total Counted 100 11/25/21 08:51 Seg Neutrophils % Deputy Editor In Chief 11/25/21 08:51 Seg Neuts % (Manual) 84.0 % (40.0-70.0) H 11/25/21 08:51 Band Neutrophils % 10.0 % 11/25/21 08:51 Lymphocytes % (Manual) 6.0 % (13.4-35.0) L 11/25/21 08:51 Reactive Lymphs % (Man) 0 % 11/25/21 08:51 Monocytes % (Manual) 0 % (0.0-7.3) 11/25/21 08:51 Eosinophils % (Manual) 0 % (0.0-4.3) 11/25/21 08:51 Basophils % (Manual) 0 % (0.0-1.8) 11/25/21 08:51 Metamyelocytes % 0 % 11/25/21 08:51 Myelocytes % 0 % 11/25/21 08:51 Promyelocytes % 0 % 11/25/21 08:51 Blast Cells % 0 % 11/25/21 08:51 Nucleated RBC % Not Reportable 11/25/21 08:51 Seg Neutrophils # Man 9.7 K/mm3 (1.8-7.7) H 11/25/21 08:51 Band Neutrophils # 1.2 K/mm3 11/25/21 08:51 Lymphocytes # (Manual) 0.7 K/mm3 (1.2-5.4) L 11/25/21 08:51 Abs React Lymphs (Man) 0.0 K/mm3 11/25/21 08:51 Monocytes # (Manual) 0.0 K/mm3 (0.0-0.8) 11/25/21 08:51 Eosinophils # (Manual) 0.0 K/mm3 (0.0-0.4) 11/25/21 08:51 Basophils # (Manual) 0.0 K/mm3 (0.0-0.1) 11/25/21 08:51 Metamyelocytes # 0.0 K/mm3 11/25/21 08:51 Myelocytes # 0.0 K/mm3 11/25/21 08:51 Promyelocytes # 0.0 K/mm3 11/25/21 08:51 Blast Cells # 0.0 K/mm3 11/25/21 08:51 WBC Morphology Not Reportable 11/25/21 08:51 Hypersegmented Neuts Not Reportable 11/25/21 08:51 Hyposegmented Neuts Not Reportable 11/25/21 08:51 Hypogranular Neuts Not Reportable 11/25/21 08:51 Smudge Cells Not Reportable 11/25/21 08:51 Toxic Granulation Not Reportable 11/25/21 08:51 Toxic Vacuolation Not Reportable 11/25/21 08:51 Dohle Bodies Not Reportable 11/25/21 08:51 Pelger-Huet Anomaly Not Reportable 11/25/21 08:51 Trae Rods Not Reportable 11/25/21 08:51 Platelet Estimate Consistent w auto 11/25/21 08:51 Clumped Platelets Not Reportable 11/25/21 08:51 Plt Clumps, EDTA Not Reportable 11/25/21 08:51 Large Platelets Not Reportable 11/25/21 08:51 Giant Platelets Not Reportable 11/25/21 08:51 Platelet Satelliting Not Reportable 11/25/21 08:51 Plt Morphology Comment Not Reportable 11/25/21 08:51 RBC Morphology Normal 11/25/21 08:51 Dimorphic RBCs Not Reportable 11/25/21 08:51 Polychromasia Not Reportable 11/25/21 08:51 Hypochromasia Not Reportable 11/25/21 08:51 Poikilocytosis Not Reportable 11/25/21 08:51 Anisocytosis Not Reportable 11/25/21 08:51 Microcytosis Not Reportable 11/25/21 08:51 Macrocytosis Not Reportable 11/25/21 08:51 Spherocytes Not Reportable 11/25/21 08:51 Pappenheimer Bodies Not Reportable 11/25/21 08:51 Sickle Cells Not Reportable 11/25/21 08:51 Target Cells Not Reportable 11/25/21 08:51 Tear Drop Cells Not Reportable 11/25/21 08:51 Ovalocytes Not Reportable 11/25/21 08:51 Helmet Cells Not Reportable 11/25/21 08:51 [place] Bodies Not Reportable 11/25/21 08:51 [place] Rings Not Reportable 11/25/21 08:51 [place] Cells Not Reportable 11/25/21 08:51 Bite Cells Not Reportable 11/25/21 08:51 Crenated Cell Not Reportable 11/25/21 08:51 Elliptocytes Not Reportable 11/25/21 08:51 Acanthocytes (Spur) Not Reportable 11/25/21 08:51 Rouleaux Not Reportable 11/25/21 08:51 Hemoglobin C Crystals Not Reportable 11/25/21 08:51 Schistocytes Not Reportable 11/25/21 08:51 Malaria parasites Not Reportable 11/25/21 08:51 Chris Bodies Not Reportable 11/25/21 08:51 Hem Pathologist Commnt No 11/25/21 08:51 PT 14.3 Sec. (12.2-14.9) 11/24/21 06:30 INR 1.00 (0.87-1.13) 11/24/21 06:30 D-Dimer 571.39 ng/mlDDU (0-234) H 11/24/21 18:25 ABG pH 7.392 pH Units (7.350-7.450) 11/24/21 18:15 ABG pCO2 34.3 mm Hg 11/24/21 18:15 ABG pO2 94.8 mm Hg (80.0-90.0) H 11/24/21 18:15 ABG HCO3 20.4 mmol/L (20.0-26.0) 11/24/21 18:15 ABG O2 Saturation 97.1 % (95.0-99.0) 11/24/21 18:15 ABG O2 Content 18.8 (0.0-44) 11/24/21 18:15 ABG Base Excess -3.7 mmol/L (-2.0-3.0) L 11/24/21 18:15 ABG Hemoglobin 14.0 gm/dl (14.0-18.0) 11/24/21 18:15 ABG Carboxyhemoglobin 1.0 % (0.0-5.0) 11/24/21 18:15 ABG Methemoglobin 0.6 % (0.0-1.5) 11/24/21 18:15 Oxyhemoglobin 95.5 % (95.0-99.0) 11/24/21 18:15 FiO2 100 % 11/24/21 18:15 Sodium 135 mmol/L (137-145) L 11/25/21 08:51 Potassium 4.4 mmol/L (3.6-5.0) 11/25/21 08:51 Chloride 101.7 mmol/L (98-107) 11/25/21 08:51 Carbon Dioxide 25 mmol/L (22-30) 11/25/21 08:51 Anion Gap 13 mmol/L 11/25/21 08:51 BUN 15 mg/dL (9-20) 11/25/21 08:51 Creatinine 1.2 mg/dL (0.8-1.3) 11/25/21 08:51 Estimated GFR > 60 ml/min 11/25/21 08:51 BUN/Creatinine Ratio 13 % 11/25/21 08:51 Glucose 148 mg/dL (75-100) H 11/25/21 08:51 POC Glucose 147 mg/dL (70-105) H 11/25/21 11:33 Lactic Acid 1.60 mmol/L (0.7-2.0) 11/25/21 08:51 Calcium 8.6 mg/dL (8.4-10.2) 11/25/21 08:51 Magnesium 1.70 mg/dL (1.7-2.3) 11/24/21 16:33 Ferritin 210.2 ng/mL (30.0-300.0) 11/24/21 06:30 Total Bilirubin 0.60 mg/dL (0.1-1.2) 11/25/21 08:51 AST 35 units/L (5-40) 11/25/21 08:51 ALT 38 units/L (7-56) 11/25/21 08:51 Alkaline Phosphatase 57 units/L (35-129) 11/25/21 08:51 Lactate Dehydrogenase 300 units/L (91-180) H 11/24/21 06:30 Total Creatine Kinase 441 units/L (55-170) H 11/24/21 06:30 Troponin T 0.021 ng/mL (0.00-0.029) 11/24/21 06:30 C-Reactive Protein < 0.30 mg/dL (0.00-1.30) 11/24/21 06:30 Total Protein 8.5 g/dL (6.3-8.2) H 11/25/21 08:51 Albumin 3.4 g/dL (3.9-5) L 11/25/21 08:51 Albumin/Globulin Ratio 0.7 % 11/25/21 08:51 Procalcitonin < 0.05 ng/mL (<0.15) 11/24/21 06:30 Urine Color Yellow (Yellow) 11/24/21 06:04 Urine Turbidity Clear (Clear) 11/24/21 06:04 Urine pH 6.0 (5.0-7.0) 11/24/21 06:04 Ur Specific [place] 1.012 (1.003-1.030) 11/24/21 06:04 Urine Protein 100 mg/dl mg/dL (Negative) 11/24/21 06:04 Urine Glucose (UA) >=500 mg/dL (Negative) 11/24/21 06:04 Urine Ketones Neg mg/dL (Negative) 11/24/21 06:04 Urine Blood Mod (Negative) 11/24/21 06:04 Urine Nitrite Neg (Negative) 11/24/21 06:04 Urine Bilirubin Neg (Negative) 11/24/21 06:04 Urine Urobilinogen < 2.0 mg/dL (<2.0) 11/24/21 06:04 Ur Leukocyte Esterase Neg (Negative) 11/24/21 06:04 Urine WBC (Auto) < 1.0 /HPF (0.0-6.0) 11/24/21 06:04 Urine RBC (Auto) 1.0 /HPF (0.0-6.0) 11/24/21 06:04 Urine Mucus Few /HPF 11/24/21 06:04 Salicylates < 0.3 mg/dL (2.8-20.0) L 11/24/21 06:08 Urine Opiates Screen Negative 11/24/21 06:04 Urine Methadone Screen Negative 11/24/21 06:04 Acetaminophen 5.0 ug/mL (10.0-30.0) L 11/24/21 06:08 Ur Barbiturates Screen Negative 11/24/21 06:04 Ur Phencyclidine Scrn Negative 11/24/21 06:04 Ur Amphetamines Screen Negative 11/24/21 06:04 U Benzodiazepines Scrn Negative 11/24/21 06:04 Urine Cocaine Screen Positive 11/24/21 06:04 U Marijuana (THC) Screen Positive 11/24/21 06:04 Drugs of Abuse Note Disclamer 11/24/21 06:04 Plasma/Serum Alcohol < 0.01 % (0-0.07) 11/24/21 06:08 Coronavirus (PCR) Negative (Negative) 11/24/21 09:25 Microbiology: Microbiology 11/24/21 09:09 Peripheral/Venous Blood Culture - Preliminary NO GROWTH AFTER 24 HOURS 11/24/21 09:09 Peripheral/Venous Blood Culture - Preliminary NO GROWTH AFTER 24 HOURS Disla/IV: Voiding Method Toilet Active Medications - Current Medications Current Medications: Generic Name Dose Route Start Last Admin Trade Name Freq PRN Reason Stop Dose Admin Acetaminophen 650 mg 11/24/21 10:00 Acetaminophen 325 Mg Tab PO Q4H PRN Pain MILD(1-3)/Fever >100.5/BLACK Enoxaparin Sodium 40 mg 11/24/21 10:00 11/24/21 13:36 Enoxaparin 40 Mg/0.4 Ml Inj SUB-Q 40 mg QDAY TOMA Administration Famotidine 20 mg 11/24/21 10:00 11/24/21 22:52 Famotidine 20 Mg/2 Ml Inj IV 20 mg BID TOMA Administration Sodium Chloride 1,000 mls @ 75 mls/hr 11/24/21 10:00 11/25/21 01:37 Nacl 0.9% 1000 Ml IV 75 mls/hr DIRECT TOMA Administration Azithromycin 500 mg in 250 mls @ 250 mls/hr 11/24/21 10:00 11/24/21 13:35 Zithromax/Ns IV 11/28/21 11:59 250 mls/hr Q24H TOMA Administration Ceftriaxone Sodium 2 gm in 100 mls @ 200 mls/hr 11/25/21 10:00 Rocephin/Ns 2 Gm/100 Ml IV Q24HR [facility] Protocol Insulin Human Lispro 0 unit 11/24/21 22:00 11/24/21 22:51 Insulin Lispro 100 Unit/Ml SUB-Q Not Given ACHS [facility] Protocol Morphine Sulfate 2 mg 11/24/21 10:00 Morphine 4 Mg/1 Ml Inj IV Q4H PRN Pain , Severe (7-10) Naloxone HCl 0.1 mg 11/24/21 10:00 Naloxone 0.4 Mg/1 Ml Inj IV Q2MIN PRN Res Rate </= 8 or 02 SAT < 92% Ondansetron HCl 4 mg 11/24/21 17:31 Ondansetron 4 Mg/2 Ml Inj IV Q4H PRN Nausea And Vomiting Oxycodone/Acetaminophen 1 tab 11/24/21 10:00 Oxycodone /Acetaminophen 5-325mg Tab PO Q6H PRN Pain, Moderate (4-6) Sodium Chloride 10 ml 11/24/21 10:00 11/24/21 22:52 Sodium Chloride 0.9% 10 Ml Flush Syringe IV 10 ml BID TOMA Administration Sodium Chloride 10 ml 11/24/21 10:00 Sodium Chloride 0.9% 10 Ml Flush Syringe IV PRN PRN LINE FLUSH
[2021-11-25] MEDS: FAMOTIDINE 20 MG/2 ML INJ IV SCH ×2 (13:44→22:46)
[2021-11-25] MEDS: AZITHROMYCIN/NS 500 MG/250 ML 500 MG/250 ML BAG IV SCH (13:44)
[2021-11-25] MEDS: ENOXAPARIN 40 MG/0.4 ML INJ SUB-Q SCH (13:44)
[2021-11-25] MEDS: cefTRIAXone/NS 2 GM/100 ML 2 GM/100 ML BAG IV SCH (13:45)
--- NOTE | 2021-11-25 13:52 | Consultation ---
History of Present Illness - Reason for Consult Consult date: 11/25/21 HIV, TB, pneumonia Requesting physician: WASHINGTON ALBERTO - History of Present Illness The patient is a 26-year-old male with HIV, depression, polysubstance abuse was admitted to the hospital on 11/24/2021 after being unresponsive after he was doing drugs namely cocaine, THC and Percocet. Found to have bilateral aspiration pneumonia causing acute respiratory failure. He is on empiric ant ibiotics and steroids. Was seen by pulmonary. Infectious diseases was consulted due to HIV and concern for tuberculosis. Patient reports HIV was diagnosed in 2019, has been following up with the [facility], is on Biktarvy, viral load is undetectable, does not remember his CD4 count. He is on INH 300 mg daily with vitamin B6 for latent TB. He is feeling much better and wants to go home. Was on HFNC, now weaned to 3 lit/min NC. Review of Systems: As per HPI Past History Past Medical History: No medical history, HIV/AIDS, other (depression, polystubstance abuse) Past Surgical History: No surgical history Social history: smoking, alcohol abuse, other (Recreational drug use cocaine and marijuana) Family history: no significant family history Medications and Allergies Allergies Allergy/AdvReac Type Severity Reaction Status Date / Time No Known Allergies Allergy Unverified 11/24/21 05:59 Active Meds: Active Medications Acetaminophen (Acetaminophen 325 Mg Tab) 650 mg PO Q4H PRN PRN Reason: Pain MILD(1-3)/Fever >100.5/BLACK Dolutegravir Sodium 50 mg/Tenofovir Disoproxil Fumarate 300 mg/ Emtricitabine 200 mg 0 mg PO DAILY [facility] Enoxaparin Sodium (Enoxaparin 40 Mg/0.4 Ml Inj) 40 mg SUB-Q QDAY [facility] Last Admin: 11/24/21 13:36 Dose: 40 mg Famotidine (Famotidine 20 Mg/2 Ml Inj) 20 mg IV BID [facility] Last Admin: 11/24/21 22:52 Dose: 20 mg Sodium Chloride (Nacl 0.9% 1000 Ml) 1,000 mls @ 75 mls/hr IV DIRECT [facility] Last Admin: 11/25/21 01:37 Dose: 75 mls/hr Ceftriaxone Sodium (Rocephin/Ns 2 Gm/100 Ml) 2 gm in 100 mls @ 200 mls/hr IV Q24HR [facility]; Protocol Insulin Human Lispro (Insulin Lispro 100 Unit/Ml) 0 unit SUB-Q ACHS [facility]; Protocol Last Admin: 11/24/21 22:51 Dose: Not Given Isoniazid (Isoniazid 300 Mg Tab) 300 mg PO QDAY [facility] Morphine Sulfate (Morphine 4 Mg/1 Ml Inj) 2 mg IV Q4H PRN PRN Reason: Pain , Severe (7-10) Naloxone HCl (Naloxone 0.4 Mg/1 Ml Inj) 0.1 mg IV Q2MIN PRN PRN Reason: Res Rate </= 8 or 02 SAT < 92% Ondansetron HCl (Ondansetron 4 Mg/2 Ml Inj) 4 mg IV Q4H PRN PRN Reason: Nausea And Vomiting Oxycodone/Acetaminophen (Oxycodone /Acetaminophen 5-325mg Tab) 1 tab PO Q6H PRN PRN Reason: Pain, Moderate (4-6) Pyridoxine HCl (Pyridoxine 50 Mg Tab) 50 mg PO QDAY [facility] Sodium Chloride (Sodium Chloride 0.9% 10 Ml Flush Syringe) 10 ml IV BID [facility] Last Admin: 11/24/21 22:52 Dose: 10 ml Sodium Chloride (Sodium Chloride 0.9% 10 Ml Flush Syringe) 10 ml IV PRN PRN PRN Reason: LINE FLUSH Physical Examination - Physical Exam Narrative exam: Physical Exam: Constitutional: Alert, cooperative. No acute distress Head, Ears, Nose: Normocephalic, atraumatic. External ears, nose normal Eyes: Conjunctivae/corneas clear. No icterus. No ptosis. Neck: Supple, no meningeal signs Oral: dentition fair, no thrush Cardiovascular: S1, S2 + Respiratory: few rhonchi b/l GI: Soft, non-tender; bowel sounds normal. No peritoneal signs Musculoskeletal: No pedal edema, no cyanosis. Skin: No rash or abscess Hem/Lymphatic: No palpable cervical or supraclavicular nodes. No lymphangitis Psych: Mood ok. Affect normal Neurological: Awake, alert, oriented. No gross abnormality - Constitutional Vitals: Vital Signs Temp Pulse Resp BP Pulse Ox 99.0 F 90 16 128/33 96 11/25/21 11:35 11/25/21 11:35 11/25/21 11:35 11/25/21 11:35 11/25/21 11:35 Temperature -Last 24 Hours Temperature 99.0 F Temperature 98.6 F Temperature 100.7 F Temperature 98.4 F Results - Labs CBC & Chem 7: 11/25/21 08:51 11/25/21 08:51 Labs: Abnormal lab results 11/24/21 11/24/21 11/24/21 Range/Units 06:30 16:33 16:33 WBC (4.5-11.0) K/mm3 Seg Neuts % (Manual) (40.0-70.0) % Lymphocytes % (Manual) (13.4-35.0) % Seg Neutrophils # Man (1.8-7.7) K/mm3 Lymphocytes # (Manual) (1.2-5.4) K/mm3 D-Dimer (0-234) ng/mlDDU ABG pO2 (80.0-90.0) mm Hg ABG Base Excess (-2.0-3.0) mmol/L Sodium (137-145) mmol/L Potassium 6.1 H* D (3.6-5.0) mmol/L Glucose (75-100) mg/dL POC Glucose (70-105) mg/dL Lactic Acid 2.10 H* (0.7-2.0) mmol/L Lactate Dehydrogenase 300 H (91-180) units/L Total Protein (6.3-8.2) g/dL Albumin (3.9-5) g/dL 11/24/21 11/24/21 11/24/21 Range/Units 18:15 18:25 22:50 WBC (4.5-11.0) K/mm3 Seg Neuts % (Manual) (40.0-70.0) % Lymphocytes % (Manual) (13.4-35.0) % Seg Neutrophils # Man (1.8-7.7) K/mm3 Lymphocytes # (Manual) (1.2-5.4) K/mm3 D-Dimer 571.39 H (0-234) ng/mlDDU ABG pO2 94.8 H (80.0-90.0) mm Hg ABG Base Excess -3.7 L (-2.0-3.0) mmol/L Sodium (137-145) mmol/L Potassium (3.6-5.0) mmol/L Glucose (75-100) mg/dL POC Glucose 139 H (70-105) mg/dL Lactic Acid (0.7-2.0) mmol/L Lactate Dehydrogenase (91-180) units/L Total Protein (6.3-8.2) g/dL Albumin (3.9-5) g/dL 11/24/21 11/25/21 11/25/21 Range/Units 23:26 07:36 08:51 WBC 11.5 H (4.5-11.0) K/mm3 Seg Neuts % (Manual) 84.0 H (40.0-70.0) % Lymphocytes % (Manual) 6.0 L (13.4-35.0) % Seg Neutrophils # Man 9.7 H (1.8-7.7) K/mm3 Lymphocytes # (Manual) 0.7 L (1.2-5.4) K/mm3 D-Dimer (0-234) ng/mlDDU ABG pO2 (80.0-90.0) mm Hg ABG Base Excess (-2.0-3.0) mmol/L Sodium (137-145) mmol/L Potassium (3.6-5.0) mmol/L Glucose (75-100) mg/dL POC Glucose 151 H (70-105) mg/dL Lactic Acid 2.40 H* (0.7-2.0) mmol/L Lactate Dehydrogenase (91-180) units/L Total Protein (6.3-8.2) g/dL Albumin (3.9-5) g/dL 11/25/21 11/25/21 Range/Units 08:51 11:33 WBC (4.5-11.0) K/mm3 Seg Neuts % (Manual) (40.0-70.0) % Lymphocytes % (Manual) (13.4-35.0) % Seg Neutrophils # Man (1.8-7.7) K/mm3 Lymphocytes # (Manual) (1.2-5.4) K/mm3 D-Dimer (0-234) ng/mlDDU ABG pO2 (80.0-90.0) mm Hg ABG Base Excess (-2.0-3.0) mmol/L Sodium 135 L (137-145) mmol/L Potassium (3.6-5.0) mmol/L Glucose 148 H (75-100) mg/dL POC Glucose 147 H (70-105) mg/dL Lactic Acid (0.7-2.0) mmol/L Lactate Dehydrogenase (91-180) units/L Total Protein 8.5 H (6.3-8.2) g/dL Albumin 3.4 L (3.9-5) g/dL - Imaging and Cardiology Chest x-ray: report reviewed, image reviewed (b/l airspace opacities) CT scan - chest: report reviewed, image reviewed (b/l airspace opacities) Assessment and Plan Cultures: 11/24/2021 blood culture: No growth A/P: 26-year-old male with HIV, depression, polysubstance abuse was admitted to the hospital on 11/24/2021 after being unresponsive following substance abuse #Acute aspiration pneumonia: following AMS due to substance abuse. Improving. #Acute resp failure: secondary to above, improving, off HFNC, down to 3 lit/min NC. #HIV: diagnosed in 2019, has been following up with the [facility] clinic at [facility], is on Biktarvy, viral load is undetectable, does not remember his CD4 count #Tuberculosis: He is on INH 300 mg daily with vitamin B6 for latent TB. #Polysubstance abuse Recs: -Continue ceftriaxone for 5 days. As per updated pneumonia guidelines, anaerobic coverage is not needed for acute aspiration pneumonia. If discharged, switch to PO Ceftin 500 mg BID -Resumed p.o. Biktarvy, as per hospital formulary therapeutic interchange (tenofovir, emtricitabine, dolutegravir) -Resumed p.o. INH 300 mg daily plus vitamin B6 for LTBI -Does not need to be on isolation for latent TB -Continue outpatient follow-up with [facility] Jonathan Rivero MD, FACP, DILCIA [facility] O: [phone] F: [phone] C: [phone]
[2021-11-25] MEDS ORDERED: DOLUTEGRAVIR 50 MG, TENOFOVIR 300 MG, EMTRICITABINE 200 MG PO SCH (14:00)
[2021-11-25] MEDS: ISONIAZID 300 MG TAB PO SCH (18:10)
[2021-11-25] MEDS: PYRIDOXINE 50 MG TAB PO SCH (18:11)
[2021-11-26 06:10] LABS: Hematocrit 32.1 % (35.5-45.6); Hemoglobin 11.4 gm/dl (11.8-15.2); Mean Corpuscular HGB Conc 36 % (32-34); Mean Corpuscular Volume 86 fl (84-94); Platelet Count 206 K/mm3 (140-440); Red Blood Count 3.73 M/mm3 (3.65-5.03)
[2021-11-26 06:23] LABS: BUN/Creatinine Ratio 15; Blood Urea Nitrogen 15 mg/dL (9-20); Calcium 8.2 mg/dL (8.4-10.2); Hemolysis Index 5
[2021-11-26] MEDS: INSULIN LISPRO 100 UNIT/ML SUB-Q SCH ×4 (08:43→22:20)
[2021-11-26] MEDS: cefTRIAXone/NS 2 GM/100 ML 2 GM/100 ML BAG IV SCH (09:34)
[2021-11-26] MEDS: FAMOTIDINE 20 MG TAB PO SCH ×2 (09:35→22:00)
[2021-11-26] MEDS: ENOXAPARIN 40 MG/0.4 ML INJ SUB-Q SCH (09:35)
[2021-11-26] MEDS: ISONIAZID 300 MG TAB PO SCH (09:35)
[2021-11-26] MEDS: DOLUTEGRAVIR 50 MG TAB PO SCH (09:36)
[2021-11-26] MEDS: EMTRICITABINE 200 MG CAP PO SCH (09:36)
[2021-11-26] MEDS: TENOFOVIR 300 MG TAB PO SCH (09:37)
[2021-11-26] MEDS: PYRIDOXINE 50 MG TAB PO SCH (09:37)
--- NOTE | 2021-11-26 11:04 | Progress Note ---
Assessment and Plan Cultures: 11/24/2021 blood culture: No growth A/P: 26-year-old male with HIV, depression, polysubstance abuse was admitted to the hospital on 11/24/2021 after being unresponsive following substance abuse #Acute aspiration pneumonia: following AMS due to substance abuse. Improving. #Acute resp failure: secondary to above, improving, off HFNC, down to 2 lit/min NC. #HIV: diagnosed in 2019, has been following up with the [facility], is on Biktarvy, viral load is undetectable, does not remember his CD4 count #Tuberculosis: He is on INH 300 mg daily with vitamin B6 for latent TB. #Polysubstance abuse Recs: -Continue ceftriaxone for 5 days, D3 today. If discharged, switch to PO Ceftin 500 mg BID -Continue p.o. Biktarvy, as per hospital formulary therapeutic interchange (tenofovir, emtricitabine, dolutegravir) -Continue p.o. INH 300 mg daily plus vitamin B6 for LTBI -Does not need to be on isolation for latent TB -Continue outpatient follow-up with [facility] Dept -wean oxygen, discharge planning Will sign off. Jonathan Rivero MD, FACP, DILC[facility] ([facility] O: [phone] F: [phone] C: [phone] Subjective Date of service: 11/26/21 Interval history: No fever. Denies any complaints. Hoping he can go home today. Objective - Exam Narrative Exam: Physical Exam: Constitutional: Alert, cooperative. No acute distress Head, Ears, Nose: Normocephalic, atraumatic. External ears, nose normal Eyes: Conjunctivae/corneas clear. No icterus. No ptosis. Neck: Supple, no meningeal signs Oral: dentition fair, no thrush Cardiovascular: S1, S2 + Respiratory: clear b/l, no wheeze or rhonchi GI: Soft, non-tender; bowel sounds normal. No peritoneal signs Musculoskeletal: No pedal edema, no cyanosis. Skin: No rash or abscess Hem/Lymphatic: No palpable cervical or supraclavicular nodes. No lymphangitis Psych: Mood ok. Affect normal Neurological: Awake, alert, oriented. No gross abnormality - Constitutional Vitals: Vital Signs Temp Pulse Resp BP Pulse Ox 99.3 F 79 18 111/63 95 11/26/21 08:05 11/26/21 08:05 11/26/21 08:05 11/26/21 08:05 11/26/21 08:05 Temperature -Last 24 Hours Temperature 99.3 F Temperature 98.7 F Temperature 98.6 F Temperature 98.6 F Temperature 98.6 F Temperature 99.0 F - Labs CBC & Chem 7: 11/26/21 05:41 11/26/21 05:41 Labs: Abnormal lab results 11/25/21 11/25/21 11/25/21 Range/Units 11:33 16:05 20:06 Hgb (11.8-15.2) gm/dl Hct (35.5-45.6) % MCHC (32-34) % Glucose (75-100) mg/dL POC Glucose 147 H 131 H 135 H (70-105) mg/dL Calcium (8.4-10.2) mg/dL 11/26/21 11/26/21 Range/Units 05:41 05:41 Hgb 11.4 L (11.8-15.2) gm/dl Hct 32.1 L (35.5-45.6) % MCHC 36 H (32-34) % Glucose 109 H (75-100) mg/dL POC Glucose (70-105) mg/dL Calcium 8.2 L (8.4-10.2) mg/dL
--- NOTE | 2021-11-26 15:05 | Progress Note ---
Assessment and Plan 26 y/o male with known HIV and currently on treatment for TB admitted with acute respiratory failure secondary to likely aspiration after drug use, not trying to harm himself 11/26/21: Wean FiO2 to off, needs to have ambulatory test prior to discharge. Abx therapy per ID. Latent TB therapy per the counts include 234 beds at the [facility]. No objection to discharge pulmonary eng. Will sign off. 1. Stopped steroids 2. Wean FiO2 for sats >88% 3. Resume HIV therapy and TB therapy 4. If abx are felt to be needed, suggest using something with better anaerobic coverage 5. Incentive gisel, OOB to chair, ambulate in room 6. Will continue to follow. Subjective Date of service: 11/26/21 Interval history: Down to 2 liters NC with good sats. Latent TB is what he is on therapy for. Followed by [facility] Objective Vital Signs - 12hr 11/26/21 11/26/21 11/26/21 03:25 08:00 08:05 Temperature 98.7 F 99.3 F Pulse Rate 73 79 Pulse Rate [ Radial] Respiratory 18 18 Rate Blood Pressure 113/70 111/63 O2 Sat by Pulse 96 97 95 Oximetry 11/26/21 11/26/21 11/26/21 10:00 11:52 11:53 Temperature 99.3 F Pulse Rate 67 67 Pulse Rate [ 67 Radial] Respiratory 18 18 Rate Blood Pressure 110/67 O2 Sat by Pulse 96 97 Oximetry Constitutional: no acute distress, alert, other (wants to go home) Eyes: non-icteric ENT: oropharynx moist Neck: supple Effort: normal Ascultation: Bilateral: rales Percussion: Bilateral: not dull Tactile fremitus: Bilateral: diminished Cardiovascular: regular rate and rhythm Gastrointestinal: normoactive bowel sounds CBC and BMP: 11/26/21 05:41 11/26/21 05:41 ABG, PT/INR, D-dimer: ABG ABG pH 7.392 pH Units (7.350-7.450) 11/24/21 18:15 ABG pCO2 34.3 mm Hg 11/24/21 18:15 ABG pO2 94.8 mm Hg (80.0-90.0) H 11/24/21 18:15 ABG O2 Saturation 97.1 % (95.0-99.0) 11/24/21 18:15 PT/INR, D-dimer PT 14.3 Sec. (12.2-14.9) 11/24/21 06:30 INR 1.00 (0.87-1.13) 11/24/21 06:30 D-Dimer 571.39 ng/mlDDU (0-234) H 11/24/21 18:25 Abnormal lab findings: Abnormal Labs 11/24/21 11/24/21 11/24/21 06:08 06:08 06:08 WBC Hgb Hct MCHC Seg Neuts % (Manual) Lymphocytes % (Manual) Seg Neutrophils # Man Lymphocytes # (Manual) D-Dimer ABG pH ABG pO2 ABG O2 Saturation ABG Base Excess Oxyhemoglobin Sodium 133 L Potassium 3.0 L Chloride 97.8 L Carbon Dioxide 21 L Glucose 320 H POC Glucose Lactic Acid Calcium 8.0 L AST Lactate Dehydrogenase Total Creatine Kinase Total Protein Albumin Salicylates < 0.3 L Acetaminophen 5.0 L 11/24/21 11/24/21 11/24/21 06:08 06:30 06:30 WBC 13.5 H Hgb Hct MCHC Seg Neuts % (Manual) 87.0 H Lymphocytes % (Manual) 4.0 L Seg Neutrophils # Man 11.7 H Lymphocytes # (Manual) 0.5 L D-Dimer ABG pH ABG pO2 ABG O2 Saturation ABG Base Excess Oxyhemoglobin Sodium Potassium 2.8 L* Chloride Carbon Dioxide Glucose 267 H POC Glucose Lactic Acid 4.60 H* Calcium AST 78 H Lactate Dehydrogenase Total Creatine Kinase 441 H Total Protein 9.8 H Albumin Salicylates Acetaminophen 11/24/21 11/24/21 11/24/21 06:30 08:20 09:09 WBC Hgb Hct MCHC Seg Neuts % (Manual) Lymphocytes % (Manual) Seg Neutrophils # Man Lymphocytes # (Manual) D-Dimer ABG pH 7.199 L* ABG pO2 56.1 L ABG O2 Saturation 84.4 L ABG Base Excess -7.0 L Oxyhemoglobin 80.8 L Sodium Potassium Chloride Carbon Dioxide Glucose POC Glucose Lactic Acid 5.10 H* Calcium AST Lactate Dehydrogenase 300 H Total Creatine Kinase Total Protein Albumin Salicylates Acetaminophen 11/24/21 11/24/21 11/24/21 16:33 16:33 18:15 WBC Hgb Hct MCHC Seg Neuts % (Manual) Lymphocytes % (Manual) Seg Neutrophils # Man Lymphocytes # (Manual) D-Dimer ABG pH ABG pO2 94.8 H ABG O2 Saturation ABG Base Excess -3.7 L Oxyhemoglobin Sodium Potassium 6.1 H* D Chloride Carbon Dioxide Glucose POC Glucose Lactic Acid 2.10 H* Calcium AST Lactate Dehydrogenase Total Creatine Kinase Total Protein Albumin Salicylates Acetaminophen 11/24/21 11/24/21 11/24/21 18:25 22:50 23:26 WBC Hgb Hct MCHC Seg Neuts % (Manual) Lymphocytes % (Manual) Seg Neutrophils # Man Lymphocytes # (Manual) D-Dimer 571.39 H ABG pH ABG pO2 ABG O2 Saturation ABG Base Excess Oxyhemoglobin Sodium Potassium Chloride Carbon Dioxide Glucose POC Glucose 139 H Lactic Acid 2.40 H* Calcium AST Lactate Dehydrogenase Total Creatine Kinase Total Protein Albumin Salicylates Acetaminophen 11/25/21 11/25/21 11/25/21 07:36 08:51 08:51 WBC 11.5 H Hgb Hct MCHC Seg Neuts % (Manual) 84.0 H Lymphocytes % (Manual) 6.0 L Seg Neutrophils # Man 9.7 H Lymphocytes # (Manual) 0.7 L D-Dimer ABG pH ABG pO2 ABG O2 Saturation ABG Base Excess Oxyhemoglobin Sodium 135 L Potassium Chloride Carbon Dioxide Glucose 148 H POC Glucose 151 H Lactic Acid Calcium AST Lactate Dehydrogenase Total Creatine Kinase Total Protein 8.5 H Albumin 3.4 L Salicylates Acetaminophen 11/25/21 11/25/21 11/25/21 11:33 16:05 20:06 WBC Hgb Hct MCHC Seg Neuts % (Manual) Lymphocytes % (Manual) Seg Neutrophils # Man Lymphocytes # (Manual) D-Dimer ABG pH ABG pO2 ABG O2 Saturation ABG Base Excess Oxyhemoglobin Sodium Potassium Chloride Carbon Dioxide Glucose POC Glucose 147 H 131 H 135 H Lactic Acid Calcium AST Lactate Dehydrogenase Total Creatine Kinase Total Protein Albumin Salicylates Acetaminophen 11/26/21 11/26/21 05:41 05:41 WBC Hgb 11.4 L Hct 32.1 L MCHC 36 H Seg Neuts % (Manual) Lymphocytes % (Manual) Seg Neutrophils # Man Lymphocytes # (Manual) D-Dimer ABG pH ABG pO2 ABG O2 Saturation ABG Base Excess Oxyhemoglobin Sodium Potassium Chloride Carbon Dioxide Glucose 109 H POC Glucose Lactic Acid Calcium 8.2 L AST Lactate Dehydrogenase Total Creatine Kinase Total Protein Albumin Salicylates Acetaminophen
[2021-11-26] MEDS: IPRATROPIUM/ALBUTEROL SULFATE 3 ML AMPUL.NEB IH SCH ×2 (16:43→20:16)
[2021-11-26] MEDS: BUDESONIDE 0.25 MG/2 ML NEBU IH SCH ×2 (16:44→20:19)
--- NOTE | 2021-11-26 17:15 | Progress Note ---
Assessment and Plan Assessment and plan: 26-year-old male patient was brought to the emergency room with unresponsiveness and toxic metabolic encephalopathy as per ER note, patient was unresponsive in his room and his roommate called EMS who in turn brought him to [facility] emergency room. Patient was severely hypoxemic requiring high flow nasal cannula oxygen. Initially ER physician felt that patient was an intentional drug overdose When I evaluated the patient, patient was more alert and awake denies any suicidal thoughts or ideation Reports that he had a lot of stressors and consumed a lot of cocaine and marij uana. Patient denies chest pain or shortness of breath Patient denies headache dizziness weakness or numbness Initial evaluation in the ED findings consistent with acute hypoxemic respiratory failure Requiring high flow nasal cannula oxygen 22 L. Patient has bilateral pneumonia on chest x-ray started on empiric antibiotics As well as severe hypokalemia, can be replaced per protocol 11/25/2019 :26-year-old -[place] male patient was admitted through emergency room with acute toxic metabolic encephalopathy, cocaine overdose Severe hypoxemic respiratory failure on high flow nasal cannula oxygen, bilateral pneumonia, mi PCR test sent pending, pulmonary consulted 11/25: Patient seen by pulmonary team. Information available to us this morning states that the patient is currently undergoing treatment for tuberculosis. We will proceed with consulting ID along with following plan by pulmonary. Continue to wean oxygen as tolerated incentive spirometer. Continue HIV treatment and management. Continue isolation precautions. Lactic acidosis improved 11/26: Improving, follow pulmonary evaluation recommendations, follow pending tests discharge patient when medically stable -- Acute hypoxic respiratory failure Likely from bilateral aspiration/pneumonia Initially on high flow oxygen, progressive improving O2 currently weaned to 2 L, may need home O2 if he can wean to room air. --Bilateral pneumonia from aspiration/vomiting Empiric antibiotics Rocephin and Zithromax Blood cultures, rule out COVID-19 Mi PCR test negative. Elevated D-dimer CTA negative for PE --Intentional drug overdose/suicidal attempt/patient denied Patient reports that he was under a lot of stress And took a lot of cocaine, Denies suicidal thoughts or ideation Psych evaluated the patient, discontinued 1013 --Cocaine overdose; Supportive care, Counseling done strongly advised not to use Recreational drug use, Patient verbalized understanding --Hyperglycemia; No history of diabetes, Accu-Cheks sliding scale coverage Hemoglobin A1c, long-acting insulin as needed --Severe hypokalemia; potassium 2.8 Replenished with IV and oral KCl check magnesium Monitor electrolytes --Ongoing tobacco use; Smoking cessation counseling done Advised nicotine patch Risks and complications and side effects of ongoing tobacco use explained to the patient He verbalized understanding, spending 15 minutes --Recreational drug use[cocaine, marijuana]; Strongly advised to quit recreational drug use cocaine and marijuana Patient verbalized understanding Psych evaluation and recommendation appreciated Rescinded 1013 status Follow mi PCR test We will closely monitor the patient and adjust management as needed Plan of care reviewed with the patient and his nurse. Follow pulmonary trial consultant recommendations DVT prophylaxis Subcu heparin Disposition: Weaning O2 aggressively, currently on 2 L, may need home O2 if cannot be weaned to room air. Anticipating discharge in the this afternoon today or tomorrow morning. Discussed with the patient and the nursing staff. History Interval history: Patient reports doing much better. He has some cough. No hemoptysis or purulent sputum. No fever or chills. Remains on O2, weaned to 2 L currently. Hospitalist Physical - Constitutional Vitals: Temp Pulse Resp BP Pulse Ox 99.3 F 78 18 110/67 96 11/26/21 11:52 11/26/21 16:45 11/26/21 16:45 11/26/21 11:52 11/26/21 14:45 General appearance: Present: no acute distress, well-nourished - EENT Eyes: Present: PERRL, EOM intact ENT: clear oral mucosa - Neck Neck: Present: supple - Respiratory Respiratory effort: normal Respiratory: bilateral: diminished - Cardiovascular Rhythm: regular - Extremities Extremities: No edema - Abdominal General gastrointestinal: soft, non-tender, non-distended - Integumentary Integumentary: Absent: rash - Psychiatric Psychiatric: appropriate mood/affect - Neurologic Neurologic: no focal deficits, moves all extremities HEART Score - HEART Score Troponin: Troponin T 0.021 ng/mL (0.00-0.029) 11/24/21 06:30 Results - Labs CBC & Chem 7: 11/26/21 05:41 11/26/21 05:41 Labs: Laboratory Last Values WBC 7.7 K/mm3 (4.5-11.0) 11/26/21 05:41 RBC 3.73 M/mm3 (3.65-5.03) 11/26/21 05:41 Hgb 11.4 gm/dl (11.8-15.2) L 11/26/21 05:41 Hct 32.1 % (35.5-45.6) L 11/26/21 05:41 MCV 86 fl (84-94) 11/26/21 05:41 MCH 31 pg (28-32) 11/26/21 05:41 MCHC 36 % (32-34) H 11/26/21 05:41 RDW 14.0 % (13.2-15.2) 11/26/21 05:41 Plt Count 206 K/mm3 (140-440) 11/26/21 05:41 Add Manual Diff Complete 11/25/21 08:51 Total Counted 100 11/25/21 08:51 Seg Neutrophils % Physician Allergist Immunologist 11/25/21 08:51 Seg Neuts % (Manual) 84.0 % (40.0-70.0) H 11/25/21 08:51 Band Neutrophils % 10.0 % 11/25/21 08:51 Lymphocytes % (Manual) 6.0 % (13.4-35.0) L 11/25/21 08:51 Reactive Lymphs % (Man) 0 % 11/25/21 08:51 Monocytes % (Manual) 0 % (0.0-7.3) 11/25/21 08:51 Eosinophils % (Manual) 0 % (0.0-4.3) 11/25/21 08:51 Basophils % (Manual) 0 % (0.0-1.8) 11/25/21 08:51 Metamyelocytes % 0 % 11/25/21 08:51 Myelocytes % 0 % 11/25/21 08:51 Promyelocytes % 0 % 11/25/21 08:51 Blast Cells % 0 % 11/25/21 08:51 Nucleated RBC % Not Reportable 11/25/21 08:51 Seg Neutrophils # Man 9.7 K/mm3 (1.8-7.7) H 11/25/21 08:51 Band Neutrophils # 1.2 K/mm3 11/25/21 08:51 Lymphocytes # (Manual) 0.7 K/mm3 (1.2-5.4) L 11/25/21 08:51 Abs React Lymphs (Man) 0.0 K/mm3 11/25/21 08:51 Monocytes # (Manual) 0.0 K/mm3 (0.0-0.8) 11/25/21 08:51 Eosinophils # (Manual) 0.0 K/mm3 (0.0-0.4) 11/25/21 08:51 Basophils # (Manual) 0.0 K/mm3 (0.0-0.1) 11/25/21 08:51 Metamyelocytes # 0.0 K/mm3 11/25/21 08:51 Myelocytes # 0.0 K/mm3 11/25/21 08:51 Promyelocytes # 0.0 K/mm3 11/25/21 08:51 Blast Cells # 0.0 K/mm3 11/25/21 08:51 WBC Morphology Not Reportable 11/25/21 08:51 Hypersegmented Neuts Not Reportable 11/25/21 08:51 Hyposegmented Neuts Not Reportable 11/25/21 08:51 Hypogranular Neuts Not Reportable 11/25/21 08:51 Smudge Cells Not Reportable 11/25/21 08:51 Toxic Granulation Not Reportable 11/25/21 08:51 Toxic Vacuolation Not Reportable 11/25/21 08:51 Dohle Bodies Not Reportable 11/25/21 08:51 Pelger-Huet Anomaly Not Reportable 11/25/21 08:51 Trae Rods Not Reportable 11/25/21 08:51 Platelet Estimate Consistent w auto 11/25/21 08:51 Clumped Platelets Not Reportable 11/25/21 08:51 Plt Clumps, EDTA Not Reportable 11/25/21 08:51 Large Platelets Not Reportable 11/25/21 08:51 Giant Platelets Not Reportable 11/25/21 08:51 Platelet Satelliting Not Reportable 11/25/21 08:51 Plt Morphology Comment Not Reportable 11/25/21 08:51 RBC Morphology Normal 11/25/21 08:51 Dimorphic RBCs Not Reportable 11/25/21 08:51 Polychromasia Not Reportable 11/25/21 08:51 Hypochromasia Not Reportable 11/25/21 08:51 Poikilocytosis Not Reportable 11/25/21 08:51 Anisocytosis Not Reportable 11/25/21 08:51 Microcytosis Not Reportable 11/25/21 08:51 Macrocytosis Not Reportable 11/25/21 08:51 Spherocytes Not Reportable 11/25/21 08:51 Pappenheimer Bodies Not Reportable 11/25/21 08:51 Sickle Cells Not Reportable 11/25/21 08:51 Target Cells Not Reportable 11/25/21 08:51 Tear Drop Cells Not Reportable 11/25/21 08:51 Ovalocytes Not Reportable 11/25/21 08:51 Helmet Cells Not Reportable 11/25/21 08:51 Ambrocio-Deans Bodies Not Reportable 11/25/21 08:51 [place]nee Rings Not Reportable 11/25/21 08:51 Woody Cells Not Reportable 11/25/21 08:51 Bite Cells Not Reportable 11/25/21 08:51 Crenated Cell Not Reportable 11/25/21 08:51 Elliptocytes Not Reportable 11/25/21 08:51 Acanthocytes (Spur) Not Reportable 11/25/21 08:51 Rouleaux Not Reportable 11/25/21 08:51 Hemoglobin C Crystals Not Reportable 11/25/21 08:51 Schistocytes Not Reportable 11/25/21 08:51 Malaria parasites Not Reportable 11/25/21 08:51 Chris Bodies Not Reportable 11/25/21 08:51 Hem Pathologist Commnt No 11/25/21 08:51 PT 14.3 Sec. (12.2-14.9) 11/24/21 06:30 INR 1.00 (0.87-1.13) 11/24/21 06:30 D-Dimer 571.39 ng/mlDDU (0-234) H 11/24/21 18:25 ABG pH 7.392 pH Units (7.350-7.450) 11/24/21 18:15 ABG pCO2 34.3 mm Hg 11/24/21 18:15 ABG pO2 94.8 mm Hg (80.0-90.0) H 11/24/21 18:15 ABG HCO3 20.4 mmol/L (20.0-26.0) 11/24/21 18:15 ABG O2 Saturation 97.1 % (95.0-99.0) 11/24/21 18:15 ABG O2 Content 18.8 (0.0-44) 11/24/21 18:15 ABG Base Excess -3.7 mmol/L (-2.0-3.0) L 11/24/21 18:15 ABG Hemoglobin 14.0 gm/dl (14.0-18.0) 11/24/21 18:15 ABG Carboxyhemoglobin 1.0 % (0.0-5.0) 11/24/21 18:15 ABG Methemoglobin 0.6 % (0.0-1.5) 11/24/21 18:15 Oxyhemoglobin 95.5 % (95.0-99.0) 11/24/21 18:15 FiO2 100 % 11/24/21 18:15 Sodium 138 mmol/L (137-145) 11/26/21 05:41 Potassium 3.9 mmol/L (3.6-5.0) 11/26/21 05:41 Chloride 105.8 mmol/L (98-107) 11/26/21 05:41 Carbon Dioxide 23 mmol/L (22-30) 11/26/21 05:41 Anion Gap 13 mmol/L 11/26/21 05:41 BUN 15 mg/dL (9-20) 11/26/21 05:41 Creatinine 1.0 mg/dL (0.8-1.3) 11/26/21 05:41 Estimated GFR > 60 ml/min 11/26/21 05:41 BUN/Creatinine Ratio 15 % 11/26/21 05:41 Glucose 109 mg/dL (75-100) H 11/26/21 05:41 POC Glucose 101 mg/dL (70-105) 11/26/21 11:51 Lactic Acid 1.60 mmol/L (0.7-2.0) 11/25/21 08:51 Calcium 8.2 mg/dL (8.4-10.2) L 11/26/21 05:41 Magnesium 1.70 mg/dL (1.7-2.3) 11/24/21 16:33 Ferritin 210.2 ng/mL (30.0-300.0) 11/24/21 06:30 Total Bilirubin 0.60 mg/dL (0.1-1.2) 11/25/21 08:51 AST 35 units/L (5-40) 11/25/21 08:51 ALT 38 units/L (7-56) 11/25/21 08:51 Alkaline Phosphatase 57 units/L (35-129) 11/25/21 08:51 Lactate Dehydrogenase 300 units/L (91-180) H 11/24/21 06:30 Total Creatine Kinase 441 units/L (55-170) H 11/24/21 06:30 Troponin T 0.021 ng/mL (0.00-0.029) 11/24/21 06:30 C-Reactive Protein < 0.30 mg/dL (0.00-1.30) 11/24/21 06:30 Total Protein 8.5 g/dL (6.3-8.2) H 11/25/21 08:51 Albumin 3.4 g/dL (3.9-5) L 11/25/21 08:51 Albumin/Globulin Ratio 0.7 % 11/25/21 08:51 Procalcitonin < 0.05 ng/mL (<0.15) 11/24/21 06:30 Urine Color Yellow (Yellow) 11/24/21 06:04 Urine Turbidity Clear (Clear) 11/24/21 06:04 Urine pH 6.0 (5.0-7.0) 11/24/21 06:04 Ur Specific [place] 1.012 (1.003-1.030) 11/24/21 06:04 Urine Protein 100 mg/dl mg/dL (Negative) 11/24/21 06:04 Urine Glucose (UA) >=500 mg/dL (Negative) 11/24/21 06:04 Urine Ketones Neg mg/dL (Negative) 11/24/21 06:04 Urine Blood Mod (Negative) 11/24/21 06:04 Urine Nitrite Neg (Negative) 11/24/21 06:04 Urine Bilirubin Neg (Negative) 11/24/21 06:04 Urine Urobilinogen < 2.0 mg/dL (<2.0) 11/24/21 06:04 Ur Leukocyte Esterase Neg (Negative) 11/24/21 06:04 Urine WBC (Auto) < 1.0 /HPF (0.0-6.0) 11/24/21 06:04 Urine RBC (Auto) 1.0 /HPF (0.0-6.0) 11/24/21 06:04 Urine Mucus Few /HPF 11/24/21 06:04 Salicylates < 0.3 mg/dL (2.8-20.0) L 11/24/21 06:08 Urine Opiates Screen Negative 11/24/21 06:04 Urine Methadone Screen Negative 11/24/21 06:04 Acetaminophen 5.0 ug/mL (10.0-30.0) L 11/24/21 06:08 Ur Barbiturates Screen Negative 11/24/21 06:04 Ur Phencyclidine Scrn Negative 11/24/21 06:04 Ur Amphetamines Screen Negative 11/24/21 06:04 U Benzodiazepines Scrn Negative 11/24/21 06:04 Urine Cocaine Screen Positive 11/24/21 06:04 U Marijuana (THC) Screen Positive 11/24/21 06:04 Drugs of Abuse Note Disclamer 11/24/21 06:04 Plasma/Serum Alcohol < 0.01 % (0-0.07) 11/24/21 06:08 Coronavirus (PCR) Negative (Negative) 11/24/21 09:25 Microbiology: Microbiology 11/24/21 09:09 Peripheral/Venous Blood Culture - Preliminary NO GROWTH AFTER 48 HOURS 11/24/21 09:09 Peripheral/Venous Blood Culture - Preliminary NO GROWTH AFTER 48 HOURS Disla/IV: Voiding Method Toilet Active Medications - Current Medications Current Medications: Generic Name Dose Route Start Last Admin Trade Name Freq PRN Reason Stop Dose Admin Acetaminophen 650 mg 11/24/21 10:00 Acetaminophen 325 Mg Tab PO Q4H PRN Pain MILD(1-3)/Fever >100.5/BLACK Albuterol/Ipratropium 1 ampul 11/26/21 15:00 11/26/21 16:43 Ipratropium/Albuterol Sulfate 3 Ml Ampul.Neb IH 1 ampul TIDRT TOMA Administration Budesonide 0.25 mg 11/26/21 15:00 11/26/21 16:44 Budesonide 0.25 Mg/2 Ml Nebu IH Not Given Q12HRT TOMA Dolutegravir Sodium 50 mg 11/26/21 10:00 11/26/21 09:36 Dolutegravir 50 Mg Tab PO 50 mg QDAY TOMA Administration Emtricitabine 200 mg 11/26/21 10:00 11/26/21 09:36 Emtricitabine 200 Mg Cap PO 200 mg QDAY TOMA Administration Enoxaparin Sodium 40 mg 11/24/21 10:00 11/26/21 09:35 Enoxaparin 40 Mg/0.4 Ml Inj SUB-Q 40 mg QDAY TOMA Administration Famotidine 20 mg 11/26/21 10:00 11/26/21 09:35 Famotidine 20 Mg Tab PO 20 mg BID TOMA Administration Sodium Chloride 1,000 mls @ 75 mls/hr 11/24/21 10:00 11/25/21 01:37 Nacl 0.9% 1000 Ml IV 75 mls/hr DIRECT TOMA Administration Ceftriaxone Sodium 2 gm in 100 mls @ 200 mls/hr 11/25/21 10:00 11/26/21 09:34 Rocephin/Ns 2 Gm/100 Ml IV 11/29/21 10:29 200 mls/hr Q24HR TOMA Administration Protocol Insulin Human Lispro 0 unit 11/24/21 22:00 11/26/21 11:59 Insulin Lispro 100 Unit/Ml SUB-Q Not Given ACHS TOMA Protocol Isoniazid 300 mg 11/25/21 16:00 11/26/21 09:35 Isoniazid 300 Mg Tab PO 300 mg QDAY TOMA Administration Naloxone HCl 0.1 mg 11/24/21 10:00 Naloxone 0.4 Mg/1 Ml Inj IV Q2MIN PRN Res Rate </= 8 or 02 SAT < 92% Ondansetron HCl 4 mg 11/24/21 17:31 Ondansetron 4 Mg/2 Ml Inj IV Q4H PRN Nausea And Vomiting Pyridoxine HCl 50 mg 11/25/21 14:00 11/26/21 09:37 Pyridoxine 50 Mg Tab PO 50 mg QDAY TOMA Administration Sodium Chloride 10 ml 11/24/21 10:00 11/26/21 09:37 Sodium Chloride 0.9% 10 Ml Flush Syringe IV 10 ml BID TOMA Administration Sodium Chloride 10 ml 11/24/21 10:00 Sodium Chloride 0.9% 10 Ml Flush Syringe IV PRN PRN LINE FLUSH Tenofovir Disoproxil Fumarate 300 mg 11/26/21 10:00 11/26/21 09:37 Tenofovir 300 Mg Tab PO 300 mg QDAY TOMA Administration
--- NOTE | 2021-11-26 18:06 | Vascular Lab Report ---
DUPLEX DOPPLER LOWER EXTREMITY VEINS, BILATERAL INDICATION / CLINICAL INFORMATION: Elevated D-dimers/evaluate for DVT. TECHNIQUE: Duplex doppler imaging was performed through the veins of both lower extremities using venous chin hung and other maneuvers. COMPARISON: None available. FINDINGS: RIGHT COMMON FEMORAL VEIN: Negative. RIGHT FEMORAL VEIN: Negative. RIGHT POPLITEAL VEIN: Negative. RIGHT CALF VEINS: Negative. LEFT COMMON FEMORAL VEIN: Negative. LEFT FEMORAL VEIN: Negative. LEFT POPLITEAL VEIN: Negative. LEFT CALF VEINS: Negative. ADDITIONAL FINDINGS: None. IMPRESSION: 1. No sonographic evidence for DVT in either lower extremity. Signer Name: Jordan Good MD Signed: 11/26/2021 6:02 PM Workstation Name: [id number]
[2021-11-27] MEDS: BUDESONIDE 0.25 MG/2 ML NEBU IH SCH (07:40)
[2021-11-27] MEDS: IPRATROPIUM/ALBUTEROL SULFATE 3 ML AMPUL.NEB IH SCH (07:41)
[2021-11-27] MEDS: INSULIN LISPRO 100 UNIT/ML SUB-Q SCH (09:38)
[2021-11-27] MEDS: cefTRIAXone/NS 2 GM/100 ML 2 GM/100 ML BAG IV SCH (10:05)
[2021-11-27] MEDS: FAMOTIDINE 20 MG TAB PO SCH (10:05)
[2021-11-27] MEDS: ENOXAPARIN 40 MG/0.4 ML INJ SUB-Q SCH ×2 (10:07→10:12)
[2021-11-27] MEDS: TENOFOVIR 300 MG TAB PO SCH (10:07)
[2021-11-27] MEDS: DOLUTEGRAVIR 50 MG TAB PO SCH (10:08)
[2021-11-27] MEDS: PYRIDOXINE 50 MG TAB PO SCH (10:08)
[2021-11-27] MEDS: EMTRICITABINE 200 MG CAP PO SCH (10:08)
--- NOTE | 2021-11-27 11:16 | Discharge Summary ---
Providers - Providers Date of Admission: 11/24/21 08:27 Date of discharge: 11/27/21 Attending physician: LULA DOBSON 11/24/21 08:36 psychiatry consult [Consult to Mental Health] [CONS] Routine Reason For Exam: Drug overdose/suicidal attempt 11/25/21 05:59 Consult to Case Management [CONS] Routine Services Needed at Discharge: Other Notified:: no 11/25/21 10:05 Consult to Physician [CONS] Routine Comment: Consulting Provider: JUAN ALAMO Physician Instructions: Reason For Exam: TB, ?PJP Primary care physician: PERINATAL NURSE Hospitalization Reason for admission: cocaine OD/PNA Condition: Stable Pertinent studies: CT angiogram of the chest and chest x-ray Hospital course: 26-year-old male patient was brought to the emergency room with unresponsiveness and toxic metabolic encephalopathy as per ER note, patient was unresponsive in his room and his roommate called EMS who in turn brought him to [facility] emergency room. Patient was severely hypoxemic requiring high flow nasal cannula oxygen. Initially ER physician felt that patient was an intentional drug overdose When I evaluated the patient, patient was more alert and awake denies any suicidal thoughts or ideation Reports that he had a lot of stressors and consumed a lot of cocaine and marijuana. Patient denies chest pain or shortness of breath Patient denies headache dizziness weakness or numbness Initial evaluation in the ED findings consistent with acute hypoxemic res piratory failure Requiring high flow nasal cannula oxygen 22 L. Patient has bilateral pneumonia on chest x-ray started on empiric antibiotics As well as severe hypokalemia, can be replaced per protocol 11/25/2019 :26-year-old -[place] male patient was admitted through emergency room with acute toxic metabolic encephalopathy, cocaine overdose Severe hypoxemic respiratory failure on high flow nasal cannula oxygen, bilateral pneumonia, power PCR test sent pending, pulmonary consulted 11/25: Patient seen by pulmonary team. Information available to us this morning states that the patient is currently undergoing treatment for tuberculosis. We will proceed with consulting ID along with following plan by pulmonary. Continue to wean oxygen as tolerated incentive spirometer. Continue HIV treatment and management. Continue isolation precautions. Lactic acidosis improved 11/26: Improving, follow pulmonary evaluation recommendations, follow pending tests discharge patient when medically stable 11/27 patient is alert and oriented and not in any distress and wants to go home. He has no specific complaints. He was on 1 L oxygen via nasal cannula at the time of my evaluation. His room air O2 sat is 95% 6-minute walk. Medically stable for discharge. Cleared by ID -- Acute hypoxic respiratory failure Likely from bilateral aspiration/pneumonia Initially on high flow oxygen, improving well and now is on room air with oxygen saturation of 95% --Bilateral pneumonia from aspiration/vomiting Had 3 days of IV ceftriaxone Discharged on Ceftin 500 twice daily for 5 more days Blood cultures, tested negative for COVID-19 Power PCR test negative. Elevated D-dimer CTA negative for PE --Intentional drug overdose/suicidal attempt/patient denied Patient reports that he was under a lot of stress And took a lot of cocaine, Denies suicidal thoughts or ideation Psych evaluated the patient, discontinued 1013 --Cocaine overdose; Supportive care, Counseling done strongly advised not to use Recreational drug use, Patient verbalized understanding --Severe hypokalemia; potassium 2.8 at admission Replenished with IV and oral KCl check magnesium Potassium in the normal range at discharge --Ongoing tobacco use; Smoking cessation counseling done --Recreational drug use[cocaine, marijuana]; Strongly advised to quit recreational drug use cocaine and marijuana Patient verbalized understanding Latent TB Continue INH and B6 Disposition: 01 HOME / SELF CARE / HOMELESS Final Discharge Diagnosis (Prints w/discharge instructions): Acute hypoxic respiratory failure. Bilateral aspiration pneumonia. Hypokalemia. HIV positive. Cocaine use. Latent TB Time spent for discharge: 36 Core Measure Documentation - Palliative Care Palliative Care/ Comfort Measures: Not Applicable - Core Measures Any of the following diagnoses?: none Exam - Constitutional Vitals: Temp Pulse Resp BP Pulse Ox 98.3 F 67 18 114/60 97 11/27/21 09:09 11/27/21 09:09 11/27/21 09:09 11/27/21 09:09 11/27/21 09:09 General appearance: Present: no acute distress - EENT Eyes: Present: PERRL, EOM intact ENT: hearing intact - Neck Neck: Present: supple, normal ROM - Respiratory Respiratory effort: normal Respiratory: bilateral: diminished, negative: rales, rhonchi, wheezing - Cardiovascular Rhythm: regular Heart Sounds: Present: S1 & S2 - Extremities Extremities: No edema Peripheral Pulses: within normal limits - Abdominal General gastrointestinal: Present: soft, non-tender Male genitourinary: Present: deferred - Rectal Rectal Exam: deferred - Integumentary Integumentary: Present: clear - Psychiatric Psychiatric: appropriate mood/affect - Neurologic Neurologic: moves all extremities Plan Activity: advance as tolerated Weight Bearing Status: Full Weight Bearing Diet: regular Additional Instructions: Follow-up with [facility] in 1 week Follow up with: PRIMARY CAREMD [Primary Care Provider] - 7 Days Prescriptions: cefUROXime [Ceftin] 500 mg PO Q12H #10
[2021-11-27 11:47] VITALS: BP 118/71
--- NOTE | 2021-11-27 19:44 | Electrocardiograph Report ---
[facility] Test Date: 2021-11-24 Test Time: 06:18:25 Pat Name: ALEXA FINE Department: Room: A482 Gender: M Wood Cabinetmaker: NURSE : 1995 Requested By: WASHINGTON ALBERTO Order Number: [id number] Reading MD: Lela Corey Measurements Intervals [place] Rate: 90 P: 75 NH: 146 QRS: 69 QRSD: 107 T: -31 QT: 398 QTc: 487 Interpretive Statements Sinus rhythm Probable left atrial enlargement Nonspecific ST changes No previous ECG available for comparison Electronically Signed On 11-27-2021 19:44:14 EDT by Lela Corey
== END 2021-11-27 12:30 | disposition home or self-care (01) | DRG 917 ==
LOC: ED 05:07 → 3A 08:27 → 4A 19:58
PROVIDERS: ADMIT Internal Medicine; ATTEND Internal Medicine
PROC: 4A033R1 Measurement of Arterial Saturation, Peripheral, Percutaneous Approach (ICD-10-PCS; principal; 2021-11-24)
PROC: 5A0935A Assistance with Respiratory Ventilation, Less than 24 Consecutive Hours, High Flow/Velocity Cannula (ICD-10-PCS; 2021-11-24)
DX: T40.5X2A Poisoning by cocaine, intentional self-harm, initial encounter (principal); J96.01 Acute respiratory failure with hypoxia; G92.8 Other toxic encephalopathy; B20 Human immunodeficiency virus [HIV] disease; J69.0 Pneumonitis due to inhalation of food and vomit; F32.9 Major depressive disorder, single episode, unspecified; E87.6 Hypokalemia; R73.9 Hyperglycemia, unspecified; F14.20 Cocaine dependence, uncomplicated; F17.200 Nicotine dependence, unspecified, uncomplicated; F19.10 Other psychoactive substance abuse, uncomplicated; Z20.822 Contact with and (suspected) exposure to COVID-19; Z71.6 Tobacco abuse counseling; Z22.7 Latent tuberculosis; Y92.89 Other specified places as the place of occurrence of the external cause
CPT/HCPCS: 36415; 36600; 71045; 71275; 80048; 80053; 80307; 80320; 81001; 82140; 82550; 82728; 82803; 82962; 83615; 83735; 84132; 84145; 84484; 85007; 85025; 85027; 85379; 85610; 86140; 87040; 93005; 93970; 94640; 94760; 99406; G0378; J3490; Q0162; G0480; J0456; J0610; J0696; J1650; J2920; J3480; J7030; Q9967; U0003

== ENCOUNTER 2022-03-03 17:25 | Emergency (ER) | payer MEDICAID ==
[2022-03-04] MEDS ORDERED: LIDOCAINE VISCOUS 2% 15 ML ORAL LIQD MM ONE (03:11)
--- NOTE | 2022-03-04 04:10 | Emergency Department Report ---
ED Male HPI - General Chief complaint: Pain General Stated complaint: HEMORROID Time Seen by Provider: 03/04/22 03:11 Source: patient Mode of arrival: Ambulatory Limitations: No Limitations - History of Present Illness Initial comments: 26-year-old male presented department complaining of having hemorrhoid pain for the last 3 to 4 days which was secondary to constipation. Took some laxatives was causing diarrhea was caused more sensitivity to the inguinal region with excessive stools. This emerge apartment seeking treatment due to the hemorrhoid pain and bleeding but no abdominal pain, no fever, chills, sweats. No dysuria Radiation: none Severity: mild, moderate Quality: dull Consistency: constant Improves with: none Worsens with: none new medication denies: discharge, swelling, urinary retention, blood in urine, nausea/vomiting - Related Data Previous Rx's Medication Instructions Recorded Last Taken Type Dolutegravir [Tivicay] 50 mg PO QDAY tablet 11/27/21 Unknown Rx Emtricitabine [Emtriva] 200 mg PO QDAY capsule 11/27/21 Unknown Rx Isoniazid 300 mg PO QDAY tablet 11/27/21 Unknown Rx Pyridoxine [Vitamin B-6 50MG TAB] 50 mg PO QDAY tablet 11/27/21 Unknown Rx Tenofovir [Viread] 300 mg PO QDAY tablet 11/27/21 Unknown Rx cefUROXime [Ceftin] 500 mg PO Q12H #10 11/27/21 Unknown Rx Hydrocortisone [Anusol-Hc 2.5% TOP 1 gm RC BID #30 03/04/22 Unknown Rx CREAM] Lidocaine [Lidocaine CREAM] 1 applic TP BID #5 gm 03/04/22 Unknown Rx Allergies Allergy/AdvReac Type Severity Reaction Status Date / Time No Known Allergies Allergy Unverified 11/24/21 05:59 ED Review of Systems ROS: Stated complaint: HEMORROID Other details as noted in HPI Comment: All other systems reviewed and negative ED Past Medical Hx - Past Medical History Hx Hypertension: No Hx CVA: No Hx Tuberculosis: Yes Hx HIV: Yes - Surgical History Past Surgical History?: No - Social History Smoking Status: Current Every Day Smoker Substance Use Type: Marijuana - Medications Home Medications: Home Medications Medication Instructions Recorded Confirmed Last Taken Type Dolutegravir [Tivicay] 50 mg PO QDAY tablet 11/27/21 Unknown Rx Emtricitabine [Emtriva] 200 mg PO QDAY capsule 11/27/21 Unknown Rx Isoniazid 300 mg PO QDAY tablet 11/27/21 Unknown Rx Pyridoxine [Vitamin B-6 50MG TAB] 50 mg PO QDAY tablet 11/27/21 Unknown Rx Tenofovir [Viread] 300 mg PO QDAY tablet 11/27/21 Unknown Rx cefUROXime [Ceftin] 500 mg PO Q12H #10 11/27/21 Unknown Rx Hydrocortisone [Anusol-Hc 2.5% TOP 1 gm RC BID #30 03/04/22 Unknown Rx CREAM] Lidocaine [Lidocaine CREAM] 1 applic TP BID #5 gm 03/04/22 Unknown Rx ED Physical Exam - General Limitations: No Limitations General appearance: alert, in no apparent distress - Head Head exam: Present: atraumatic, normocephalic - Eye Eye exam: Present: normal appearance, PERRL Pupils: Present: normal accommodation - ENT ENT exam: Present: normal exam, mucous membranes moist, TM's normal bilaterally - Neck Neck exam: Present: normal inspection, full ROM - Respiratory Respiratory exam: Present: normal lung sounds bilaterally. Absent: respiratory distress - Cardiovascular Cardiovascular Exam: Present: regular rate, normal rhythm. Absent: systolic murmur, diastolic murmur, rubs, gallop - GI/Abdominal GI/Abdominal exam: Present: soft, normal bowel sounds - Rectal Rectal exam: Present: deferred, hemorrhoids. Absent: normal inspection, decreased rectal tone, black stool, bloody stool, prostate tenderness, prostate enlargement - Extremities Exam Extremities exam: Present: normal inspection, normal capillary refill - Back Exam Back exam: Present: normal inspection. Absent: CVA tenderness (R), CVA tenderness (L) - Neurological Exam Neurological exam: Present: alert, oriented X3, CN II-XII intact - Psychiatric Psychiatric exam: Present: normal affect, normal mood - Skin Skin exam: Present: warm, dry, intact, normal color. Absent: rash ED Course Vital Signs 03/03/22 17:39 Temperature 98.7 F Pulse Rate 107 H Respiratory 18 Rate Blood Pressure 118/76 O2 Sat by Pulse 97 Oximetry Critical care attestation.: If time is entered above; I have spent that time in minutes in the direct care of this critically ill patient, excluding procedure time. ED Disposition Clinical Impression: External hemorrhoid, bleeding Disposition: HOME / SELF CARE / HOMELESS Is pt being admited?: No Does the pt Need Aspirin: No Condition: Stable Instructions: Hemorrhoids Prescriptions: Hydrocortisone [Anusol-Hc 2.5% TOP CREAM] 1 gm RC BID #30 Lidocaine [Lidocaine CREAM] 1 applic TP BID #5 gm Referrals: [facility] [Provider Group] - 3-5 Days
[2022-03-04 05:03] VITALS: BP 123/84
== END 2022-03-04 05:03 | disposition home or self-care (01) ==
LOC: ED 17:25
DX: K64.4 Residual hemorrhoidal skin tags (principal); K64.9 Unspecified hemorrhoids; D64.9 Anemia, unspecified; F17.200 Nicotine dependence, unspecified, uncomplicated; F12.90 Cannabis use, unspecified, uncomplicated
CPT/HCPCS: 99282

== ENCOUNTER 2022-03-05 15:08 | Emergency (ER) | payer MEDICAID, OTHER ==
[2022-03-05 15:32] VITALS: BP 107/71
[2022-03-05] MEDS ORDERED: MORPHINE 4 MG/1 ML INJ IV ONE (21:11)
[2022-03-05] MEDS ORDERED: ONDANSETRON 4 MG/2 ML INJ IV ONE (21:11)
[2022-03-05] MEDS ORDERED: cefTRIAXone/NS 1 GM/50 ML 1 GM/50 ML BAG IV ONE (21:11)
--- NOTE | 2022-03-05 22:04 | Cat Scan Report ---
CT ABDOMEN AND PELVIS WITHOUT CONTRAST HISTORY: rectal abscess COMPARISON: None TECHNIQUE: Routine abdominal and pelvic CT exam performed without contrast. Lack of intravenous cont rast limits evaluation of the vascular and solid organs.. All CT scans at this location are performed using CT dose reduction for ALARA by means of automated exposure control. FINDINGS: CT ABDOMEN: Lung Bases: No significant abnormality. Liver: No significant abnormality. Biliary: No significant abnormality. Spleen: No significant abnormality. Unenlarged. Pancreas: No significant abnormality. Adrenals: No significant abnormality. Kidneys: No significant abnormality. Lymphatics: No lymphadenopathy. Vasculature: No significant abnormality. Bowel/Peritoneum: No significant abnormality. No free air. No free fluid. Normal appendix. CT PELVIC: : No significant abnormality. Lymphatics: No lymphadenopathy. Osseous Structures: No aggressive appearing osseous lesions. Additional Findings: None IMPRESSION: 1. No acute findings. No appreciable perirectal abscess. Signer Name: Paramjit Rae MD Signed: 03/05/2022 9:59 PM Workstation Name: [id number]
[2022-03-05 22:10] LABS: Hematocrit 37.4 % (35.5-45.6); Hemoglobin 12.8 gm/dl (11.8-15.2); Mean Corpuscular HGB Conc 34 % (32-34); Mean Corpuscular Volume 88 fl (84-94); Platelet Count 221 K/mm3 (140-440); Red Blood Count 4.25 M/mm3 (3.65-5.03); Red Cell Distribution Width 13.5 % (13.2-15.2)
[2022-03-05 23:13] LABS: Basophils % (Manual) 0 % (0.0-1.8); Eosinophils % (Manual) 0 % (0.0-4.3); Total Cells Counted 100
[2022-03-05] MEDS ORDERED: AZITHROMYCIN 250 MG TAB PO ONE (23:14)
--- NOTE | 2022-03-05 23:17 | Emergency Department Report ---
ED General Adult HPI - General Chief complaint: Rectal Pain Stated complaint: THROMBOSED HEMORRHOID Time Seen by Provider: 03/05/22 21:09 Source: patient Mode of arrival: Ambulatory Limitations: No Limitations - History of Present Illness Initial comments: Is a 26-year-old male states diagnosed with hemorrhoids on 3 days ago presents for same for continued drainage. Patient states bloody purulent x3 days pain with sitting. Patient does endorse anal sex. There is no fevers no chills no nausea vomiting. Patient is tolerating p.o. hydration. Symptoms are exacerbated by movement and attempted sitting on buttocks.. Symptoms are relieved by nothing current treatment regimen is hydrocortisone cream and lidocaine gel. Patient states partner is asymptomatic. Severity scale (0 -10): 8 - Related Data Previous Rx's Medication Instructions Recorded Last Taken Type Dolutegravir [Tivicay] 50 mg PO QDAY tablet 11/27/21 Unknown Rx Emtricitabine [Emtriva] 200 mg PO QDAY capsule 11/27/21 Unknown Rx Isoniazid 300 mg PO QDAY tablet 11/27/21 Unknown Rx Pyridoxine [Vitamin B-6 50MG TAB] 50 mg PO QDAY tablet 11/27/21 Unknown Rx Tenofovir [Viread] 300 mg PO QDAY tablet 11/27/21 Unknown Rx cefUROXime [Ceftin] 500 mg PO Q12H #10 11/27/21 Unknown Rx Hydrocortisone [Anusol-Hc 2.5% TOP 1 gm RC BID #30 03/04/22 Unknown Rx CREAM] Lidocaine [Lidocaine CREAM] 1 applic TP BID #5 gm 03/04/22 Unknown Rx Doxycycline Monohydrate 100 mg PO BID 7 Days #14 tab 03/05/22 Unknown Rx Lidocaine [Lidocaine CREAM] 1 applic TP Q4H PRN #1 tube 03/05/22 Unknown Rx traMADoL [Ultram] 50 mg PO Q6HR PRN #12 tablet 03/05/22 Unknown Rx Allergies Allergy/AdvReac Type Severity Reaction Status Date / Time No Known Allergies Allergy Verified 03/05/22 15:33 ED Review of Systems ROS: Stated complaint: THROMBOSED HEMORRHOID Other details as noted in HPI Constitutional: no symptoms reported, malaise Eyes: denies: eye pain, eye discharge, vision change ENT: denies: ear pain, throat pain Respiratory: denies: cough, shortness of breath, wheezing Cardiovascular: denies: chest pain, palpitations Endocrine: no symptoms reported Gastrointestinal: other. denies: abdominal pain, nausea, vomiting, diarrhea Genitourinary: denies: urgency, dysuria, frequency (Hemorrhoids with drainage), hematuria, discharge, testicular pain, testicular mass Musculoskeletal: denies: back pain, joint swelling, arthralgia Skin: denies: rash, lesions Neurological: denies: headache, weakness, paresthesias Psychiatric: denies: anxiety, depression Hematological/Lymphatic: denies: easy bleeding, easy bruising ED Past Medical Hx - Past Medical History Hx Hypertension: No Hx CVA: No Hx Tuberculosis: Yes Hx HIV: Yes - Social History Smoking Status: Current Every Day Smoker Substance Use Type: Marijuana - Medications Home Medications: Home Medications Medication Instructions Recorded Confirmed Last Taken Type Dolutegravir [Tivicay] 50 mg PO QDAY tablet 11/27/21 Unknown Rx Emtricitabine [Emtriva] 200 mg PO QDAY capsule 11/27/21 Unknown Rx Isoniazid 300 mg PO QDAY tablet 11/27/21 Unknown Rx Pyridoxine [Vitamin B-6 50MG TAB] 50 mg PO QDAY tablet 11/27/21 Unknown Rx Tenofovir [Viread] 300 mg PO QDAY tablet 11/27/21 Unknown Rx cefUROXime [Ceftin] 500 mg PO Q12H #10 11/27/21 Unknown Rx Hydrocortisone [Anusol-Hc 2.5% TOP 1 gm RC BID #30 03/04/22 Unknown Rx CREAM] Lidocaine [Lidocaine CREAM] 1 applic TP BID #5 gm 03/04/22 Unknown Rx Doxycycline Monohydrate 100 mg PO BID 7 Days #14 tab 03/05/22 Unknown Rx Lidocaine [Lidocaine CREAM] 1 applic TP Q4H PRN #1 tube 03/05/22 Unknown Rx traMADoL [Ultram] 50 mg PO Q6HR PRN #12 tablet 03/05/22 Unknown Rx ED Physical Exam - General Limitations: No Limitations General appearance: alert, in no apparent distress - Head Head exam: Present: normocephalic, normal inspection - Eye Eye exam: Present: EOMI Pupils: Present: normal accommodation - ENT ENT exam: Present: mucous membranes moist - Neck Neck exam: Present: normal inspection, full ROM. Absent: tenderness, lymphad enopathy - Respiratory Respiratory exam: Present: normal lung sounds bilaterally. Absent: respiratory distress, wheezes, stridor - Cardiovascular Cardiovascular Exam: Present: regular rate, normal rhythm, normal heart sounds. Absent: systolic murmur, diastolic murmur, rubs, gallop - GI/Abdominal GI/Abdominal exam: Present: soft, normal bowel sounds. Absent: distended, tenderness, guarding, rebound, rigid, bruit, hernia - Rectal Rectal exam: Present: hemorrhoids (Purulent drainage), tenderness ( no thrombus noted). Absent: mass - exam: Present: normal inspection - Extremities Exam Extremities exam: Present: normal inspection, full ROM, normal capillary refill. Absent: tenderness - Back Exam Back exam: Present: normal inspection, full ROM. Absent: CVA tenderness (R), CVA tenderness (L) - Neurological Exam Neurological exam: Present: alert, oriented X3, CN II-XII intact, normal gait - Expanded Neurological Exam Expanded Patient oriented to: Present: person, place, time Speech: Present: fluid speech Motor strength exam: RUE: 5, LUE: 5, RLE: 5, LLE: 5 Best Eye Response (Armand): (4) open spontaneously Best Motor Response (Armand): (6) obeys commands Best Verbal Response (Armand): (5) oriented Armand Total: 15 - Psychiatric Psychiatric exam: Present: normal affect, normal mood - Skin Skin exam: Present: warm, dry, intact, normal color. Absent: rash ED Course Vital Signs 03/05/22 15:30 Temperature 97.5 F L Pulse Rate 115 H Respiratory 18 Rate Blood Pressure 107/71 [Left] O2 Sat by Pulse 100 Oximetry ED Medical Decision Making - Lab Data Result diagrams: 03/05/22 21:51 - Radiology Data Radiology results: pending, report reviewed, image reviewed CT ABDOMEN AND PELVIS WITHOUT CONTRAST HISTORY: rectal abscess COMPARISON: None TECHNIQUE: Routine abdominal and pelvic CT exam performed without contrast. Lack of intravenous contrast limits evaluation of the vascular and solid organs.. All CT scans at this location are pe rformed using CT dose reduction for ALARA by means of automated exposure control. FINDINGS: CT ABDOMEN: Lung Bases: No significant abnormality. Liver: No significant abnormality. Biliary: No significant abnormality. Spleen: No significant abnormality. Unenlarged. Pancreas: No significant abnormality. Adrenals: No significant abnormality. Kidneys: No significant abnormality. Lymphatics: No lymphadenopathy. Vasculature: No significant abnormality. Bowel/Peritoneum: No significant abnormality. No free air. No free fluid. Normal appendix. CT PELVIC: : No significant abnormality. Lymphatics: No lymphadenopathy. Osseous Structures: No aggressive appearing osseous lesions. Additional Findings: None IMPRESSION: 1. No acute findings. No appreciable perirectal abscess. Signer Name: Paramjit Rae MD Signed: 03/05/2022 9:59 PM Workstation Name: [id number] Transcribed By: JESUS ALBERTO Dictated By: Paramjit Rae MD Electronically Authenticated By: Paramjit Rae MD Signed Date/Time: 03/05/222158 DD/ 57 TD/TT: - Medical Decision Making CT no perirectal abscess, labs noted, plan treat for proctitis. Patient advised symptoms are improved after medications given in ED. Patient DC'd home in stable condition with follow-up with primary care doctor in 2 to 3 days. Patient will continue hydrocortisone and lidocaine, adding doxycycline to p.o. regimen, patient does have ID follow-up. Verbalizes agreement understanding of discharge plan. Patient DC'd home in stable condition at this time. Critical care attestation.: If time is entered above; I have spent that time in minutes in the direct care of this critically ill patient, excluding procedure time. ED Disposition Clinical Impression: Proctitis Hemorrhoids Qualifiers: Hemorrhoid type: unspecified Qualified Code(s): K64.9 - Unspecified hemorrhoids Disposition: HOME / SELF CARE / HOMELESS Is pt being admited?: No Does the pt Need Aspirin: No Condition: Stable Instructions: Hemorrhoids, [id number], Proctitis Additional Instructions: Medications as prescribed continue to use hydrocortisone lidocaine gel take medications as prescribed, hot sitz bath's, follow-up with your primary care doctor in 2 to 3 days. Return to emergency department if symptoms worsen. Prescriptions: Doxycycline Monohydrate 100 mg PO BID 7 Days #14 tab Lidocaine [Lidocaine CREAM] 1 applic TP Q4H PRN #1 tube PRN Reason: pain traMADoL [Ultram] 50 mg PO Q6HR PRN #12 tablet PRN Reason: Pain Referrals: RA ALONZO MD [Staff Physician] - 3-5 Days BRITTNI GRIFFIN DO [Staff Physician] - 3-5 Days Forms: Work/School Release Form(ED) Time of Disposition: 23:33
[2022-03-05 23:18] LABS: Platelet Estimate Consistent w Auto
[2022-03-05 23:25] LABS: Toxic Vacuolation Few
== END 2022-03-05 23:54 | disposition home or self-care (01) ==
LOC: ED 15:08
DX: K62.89 Other specified diseases of anus and rectum (principal); K64.9 Unspecified hemorrhoids; A15.9 Respiratory tuberculosis unspecified; Z21 Asymptomatic human immunodeficiency virus [HIV] infection status; F17.200 Nicotine dependence, unspecified, uncomplicated; Z79.899 Other long term (current) drug therapy
CPT/HCPCS: 74176; 82140; 85025; 87040; 96365; 96375; 99284; J0696; J2270; J2405

== ENCOUNTER 2022-03-08 08:47 | Emergency (ER) | payer OTHER ==
[2022-03-08 09:03] VITALS: BP 117/76
[2022-03-08] MEDS ORDERED: dexAMETHasone 4 MG/ML VIAL PO ONE (10:56)
[2022-03-08] MEDS ORDERED: PENICILLIN G BENZATHINE 1.2 MILLION UNIT/2 ML INJ IM ONE (10:56)
[2022-03-08] MEDS ORDERED: KETOROLAC 10 MG TAB PO ONE (10:56)
--- NOTE | 2022-03-08 11:37 | Emergency Department Report ---
- General Chief complaint: Skin Rash Stated complaint: MONKEY POX Time Seen by Provider: 03/08/22 10:10 Source: patient Mode of arrival: Ambulatory Limitations: No Limitations - History of Present Illness Initial comments: 26-year-old black male with no past medical history presents to the emergency department for evaluation of 1-1/2-week history of rash to bilateral hands and legs along with swollen lymph nodes, sore throat, and rectal pain. He states that for the past about 1 week he has had worsening pain to his anal area and he has noticed some rough bumps to the area that seems to get worse. MD complaint: rash, lesion -: Gradual, week(s) (1.5) Location: LUE, RUE, L hand, R hand, LLE, RLE Associated symptoms: malaise, myalgias Treatments Prior to Arrival: none - Related Data Previous Rx's Medication Instructions Recorded Last Taken Type Dolutegravir [Tivicay] 50 mg PO QDAY tablet 11/27/21 Unknown Rx Emtricitabine [Emtriva] 200 mg PO QDAY capsule 11/27/21 Unknown Rx Isoniazid 300 mg PO QDAY tablet 11/27/21 Unknown Rx Pyridoxine [Vitamin B-6 50MG TAB] 50 mg PO QDAY tablet 11/27/21 Unknown Rx Tenofovir [Viread] 300 mg PO QDAY tablet 11/27/21 Unknown Rx cefUROXime [Ceftin] 500 mg PO Q12H #10 11/27/21 Unknown Rx Hydrocortisone [Anusol-Hc 2.5% TOP 1 gm RC BID #30 03/04/22 Unknown Rx CREAM] Lidocaine [Lidocaine CREAM] 1 applic TP BID #5 gm 03/04/22 Unknown Rx Doxycycline Monohydrate 100 mg PO BID 7 Days #14 tab 03/05/22 Unknown Rx Lidocaine [Lidocaine CREAM] 1 applic TP Q4H PRN #1 tube 03/05/22 Unknown Rx traMADoL [Ultram] 50 mg PO Q6HR PRN #12 tablet 03/05/22 Unknown Rx Imiquimod 1 applicatio TP 3XW #1 tub 03/08/22 Unknown Rx Nystas/Diphen/Xyl Visc/Mylanta 30 ml MM Q4H PRN #240 ml 03/08/22 Unknown Rx [Magic Mouthwash] Allergies Allergy/AdvReac Type Severity Reaction Status Date / Time No Known Allergies Allergy Verified 03/05/22 15:33 Abscess Boil HPI - HPI Chief Complaint: Skin Rash Stated Complaint: MONKEY POX Time Seen by Provider: 03/08/22 10:10 Home Medications: Previous Rx's Medication Instructions Recorded Last Taken Type Dolutegravir [Tivicay] 50 mg PO QDAY tablet 11/27/21 Unknown Rx Emtricitabine [Emtriva] 200 mg PO QDAY capsule 11/27/21 Unknown Rx Isoniazid 300 mg PO QDAY tablet 11/27/21 Unknown Rx Pyridoxine [Vitamin B-6 50MG TAB] 50 mg PO QDAY tablet 11/27/21 Unknown Rx Tenofovir [Viread] 300 mg PO QDAY tablet 11/27/21 Unknown Rx cefUROXime [Ceftin] 500 mg PO Q12H #10 11/27/21 Unknown Rx Hydrocortisone [Anusol-Hc 2.5% TOP 1 gm RC BID #30 03/04/22 Unknown Rx CREAM] Lidocaine [Lidocaine CREAM] 1 applic TP BID #5 gm 03/04/22 Unknown Rx Doxycycline Monohydrate 100 mg PO BID 7 Days #14 tab 03/05/22 Unknown Rx Lidocaine [Lidocaine CREAM] 1 applic TP Q4H PRN #1 tube 03/05/22 Unknown Rx traMADoL [Ultram] 50 mg PO Q6HR PRN #12 tablet 03/05/22 Unknown Rx Imiquimod 1 applicatio TP 3XW #1 tub 03/08/22 Unknown Rx Nystas/Diphen/Xyl Visc/Mylanta 30 ml MM Q4H PRN #240 ml 03/08/22 Unknown Rx [Magic Mouthwash] Allergies/Adverse Reactions: Allergies Allergy/AdvReac Type Severity Reaction Status Date / Time No Known Allergies Allergy Verified 03/05/22 15:33 ED Review of Systems ROS: Stated complaint: MONKEY POX Other details as noted in HPI Comment: All other systems reviewed and negative Constitutional: malaise. denies: chills, fever, weakness Eyes: denies: vision change ENT: denies: dental pain, congestion Respiratory: denies: cough, shortness of breath, SOB with exertion, SOB at rest, stridor, wheezing Cardiovascular: denies: chest pain, palpitations, dyspnea on exertion, orthopnea, edema, syncope, paroxysmal nocturnal dyspnea Gastrointestinal: denies: abdominal pain, nausea, vomiting, diarrhea, hematemesis, melena, hematochezia Genitourinary: denies: urgency, dysuria, frequency, hematuria, discharge, testicular pain Musculoskeletal: denies: back pain Skin: rash, lesions Neurological: denies: headache, weakness ED Past Medical Hx - Past Medical History Hx Hypertension: No Hx CVA: No Hx Tuberculosis: Yes Hx HIV: Yes - Surgical History Past Surgical History?: No - Social History Smoking Status: Never Smoker - Medications Home Medications: Home Medications Medication Instructions Recorded Confirmed Last Taken Type Dolutegravir [Tivicay] 50 mg PO QDAY tablet 11/27/21 Unknown Rx Emtricitabine [Emtriva] 200 mg PO QDAY capsule 11/27/21 Unknown Rx Isoniazid 300 mg PO QDAY tablet 11/27/21 Unknown Rx Pyridoxine [Vitamin B-6 50MG TAB] 50 mg PO QDAY tablet 11/27/21 Unknown Rx Tenofovir [Viread] 300 mg PO QDAY tablet 11/27/21 Unknown Rx cefUROXime [Ceftin] 500 mg PO Q12H #10 11/27/21 Unknown Rx Hydrocortisone [Anusol-Hc 2.5% TOP 1 gm RC BID #30 03/04/22 Unknown Rx CREAM] Lidocaine [Lidocaine CREAM] 1 applic TP BID #5 gm 03/04/22 Unknown Rx Doxycycline Monohydrate 100 mg PO BID 7 Days #14 tab 03/05/22 Unknown Rx Lidocaine [Lidocaine CREAM] 1 applic TP Q4H PRN #1 tube 03/05/22 Unknown Rx traMADoL [Ultram] 50 mg PO Q6HR PRN #12 tablet 03/05/22 Unknown Rx Imiquimod 1 applicatio TP 3XW #1 tub 03/08/22 Unknown Rx Nystas/Diphen/Xyl Visc/Mylanta 30 ml MM Q4H PRN #240 ml 03/08/22 Unknown Rx [Magic Mouthwash] ED Physical Exam - General Limitations: No Limitations General appearance: alert, in no apparent distress - Head Head exam: Present: atraumatic, normocephalic - Eye Eye exam: Present: normal appearance. Absent: scleral icterus, conjunctival injection, periorbital swelling, periorbital tenderness - Expanded ENT Exam Expanded Mouth exam: Present: normal external inspection Throat exam: Positive: tonsillar erythema, tonsillomegaly, tonsillar exudate. Negative: R peritonsillar mass, L peritonsillar mass - Neck Neck exam: Present: normal inspection, tenderness, lymphadenopathy (Anterior cervical, left greater than right) - Respiratory Respiratory exam: Present: normal lung sounds bilaterally. Absent: respiratory distress, wheezes, rales, rhonchi, stridor, chest wall tenderness - Cardiovascular Cardiovascular Exam: Present: regular rate, normal heart sounds - GI/Abdominal GI/Abdominal exam: Present: soft, normal bowel sounds. Absent: distended, tenderness, guarding, rebound, rigid - Rectal Rectal exam: Present: other (Noted to have anal warts to area). Absent: normal inspection, hemorrhoids - exam: Present: other (Inguinal lymphadenopathy noted). Absent: testicular tenderness, urethral discharge, scrotal swelling External exam: Present: normal external exam - Extremities Exam Extremities exam: Present: normal capillary refill, other (Diffuse rash with areas of small open sores noted to bilateral lower extremities). Absent: tenderness - Back Exam Back exam: Present: normal inspection. Absent: CVA tenderness (R), CVA tenderness (L), vertebral tenderness - Neurological Exam Neurological exam: Present: alert, oriented X3 - Psychiatric Psychiatric exam: Present: normal affect, normal mood - Skin Skin exam: Present: warm, dry, normal color, other (Lesions noted to various areas of bilateral arms, hands, legs, and sparsely on face. Lesions noted to be in various stages of healing, no erythema or discharge noted.) ED Course Vital Signs 03/08/22 08:59 Temperature 99.2 F Pulse Rate 96 H Respiratory 14 Rate Blood Pressure 117/76 O2 Sat by Pulse 95 Oximetry ED Medical Decision Making - Medical Decision Making 26-year-old black male with no past medical history presents to the emergency department for evaluation of 1-1/2-week history of rash to bilateral hands and legs along with swollen lymph nodes, sore throat, and rectal pain. Exam consistent with exudative pharyngitis. Patient treated with one-time dose of Bicillin 1,200,000 units along with Decadron 8 mg p.o. and Toradol 10 mg p.o. x1. Patient noted to have anal warts and will be discharged home with prescription salicylic acid to place the area 3 times a week. Patient concerned with possible diagnosis of monkey pox, so he was advised to follow-up with infectious disease for further evaluation and management. He was advised to return to the emergency department as needed. He verbalizes understanding of and agreement with plan of care. Critical care attestation.: If time is entered above; I have spent that time in minutes in the direct care of this critically ill patient, excluding procedure time. ED Disposition Clinical Impression: Anal warts, Exudative pharyngitis, Rash and nonspecific skin eruption Disposition: 01 HOME / SELF CARE / HOMELESS Is pt being admited?: No Does the pt Need Aspirin: No Condition: Stable Instructions: Genital Warts, Txpi-[id number]-[id number], Strep Throat, Adult Additional Instructions: Take medications as prescribed. Follow-up with your primary care provider or infectious disease doctor for further evaluation and management. Return to the emergency department as needed. Prescriptions: Imiquimod 1 applicatio TP 3XW #1 tub Nystas/Diphen/Xyl Visc/Mylanta [Magic Mouthwash] 30 ml MM Q4H PRN #240 ml PRN Reason: Sore Throat Referrals: KIRSTIN CONCEPCION MD [Staff Physician] - 3-5 Days SUBHA ABDULLAHI MD [Staff Physician] - 3-5 Days Time of Disposition: 11:38 ED Male HPI - General Chief Complaint: Skin Rash Stated Complaint: MONKEY POX Time Seen by Provider: 03/08/22 10:10 - History of Present Illness Initial Comments: Rectal pain Timing/Duration: week Quality: moderate Onset Location: other (Rectal and anus area) Radiation: none Activites at Onset: none Prior abdominal problems: none Associated Symptoms: denies: abdominal pain, diaphoresis, dysuria, fever/chills, loss of bladder control, lower back pain, lumps, mass, nocturia, polyuria, swelling, syncope, urinary frequency Allergies/Adverse Reactions: Allergies No Known Allergies Allergy (Verified 03/05/22 15:33) Home Medications: Ambulatory Orders Dolutegravir [Tivicay] 50 mg PO QDAY tablet 11/27/21 Emtricitabine [Emtriva] 200 mg PO QDAY capsule 11/27/21 Isoniazid 300 mg PO QDAY tablet 11/27/21 Pyridoxine [Vitamin B-6 50MG TAB] 50 mg PO QDAY tablet 11/27/21 Tenofovir [Viread] 300 mg PO QDAY tablet 11/27/21 cefUROXime [Ceftin] 500 mg PO Q12H #10 11/27/21 Hydrocortisone [Anusol-Hc 2.5% TOP CREAM] 1 gm RC BID #30 03/04/22 Lidocaine [Lidocaine CREAM] 1 applic TP BID #5 gm 03/04/22 Doxycycline Monohydrate 100 mg PO BID 7 Days #14 tab 03/05/22 Lidocaine [Lidocaine CREAM] 1 applic TP Q4H PRN #1 tube 03/05/22 traMADoL [Ultram] 50 mg PO Q6HR PRN #12 tablet 03/05/22 Imiquimod 1 applicatio TP 3XW #1 tub 03/08/22 Nystas/Diphen/Xyl Visc/Mylanta [Magic Mouthwash] 30 ml MM Q4H PRN #240 ml 03/08/22
[2022-03-08] MEDS ORDERED: dexAMETHasone 4 MG/ML VIAL IM ONE (12:00)
== END 2022-03-08 14:26 | disposition home or self-care (01) ==
LOC: ED 08:47
DX: R21 Rash and other nonspecific skin eruption (principal); J02.9 Acute pharyngitis, unspecified; A63.0 Anogenital (venereal) warts; Z21 Asymptomatic human immunodeficiency virus [HIV] infection status; A15.9 Respiratory tuberculosis unspecified
CPT/HCPCS: 96372; 99282; J0561; J1100

== ENCOUNTER 2022-03-10 08:20 | Emergency (ER) | payer OTHER ==
--- NOTE | 2022-03-10 09:00 | Emergency Department Report ---
- General Chief complaint: Skin Rash Stated complaint: BODY RASH PUI?: No Time Seen by Provider: 03/10/22 08:52 Source: patient Mode of arrival: Ambulatory Limitations: No Limitations - History of Present Illness Initial comments: Patient is a 26-year-old male that comes to the emergency room after being diagnosed this week with mild hypoxia. He is now reporting dizziness and profound weakness. He does have underlying HIV. -: Gradual, days(s) Improves with: none Worsens with: none Associated Symptoms: diaphoresis, fever/chills, nausea/vomiting, rash. denies: chest pain, confusion, dark stools, dysuria, easy bruising, headaches, loss of appetite, myalgias, shortness of breath, syncope - Related Data Allergies Allergy/AdvReac Type Severity Reaction Status Date / Time No Known Allergies Allergy Verified 03/05/22 15:33 ED Review of Systems ROS: Stated complaint: BODY RASH Other details as noted in HPI Comment: All other systems reviewed and negative ED Past Medical Hx - Past Medical History Previous Medical History?: Yes Hx Hypertension: No Hx CVA: No Hx Tuberculosis: Yes Hx HIV: Yes - Surgical History Past Surgical History?: No - Family History Family history: no significant - Social History Smoking Status: Never Smoker Substance Use Type: Alcohol ED Physical Exam - General Limitations: No Limitations General appearance: alert - Head Head exam: Present: normocephalic - Eye Eye exam: Present: EOMI - Skin Skin exam: Present: warm, dry, other ED Course Vital Signs 03/10/22 03/10/22 03/10/22 08:51 10:30 10:38 Temperature 98.5 F 98.4 F Pulse Rate 96 H 76 Respiratory 14 14 Rate Blood Pressure 140/81 Blood Pressure 133/80 [Left] O2 Sat by Pulse 95 95 94 Oximetry 03/10/22 03/10/22 03/10/22 10:45 11:01 17:15 Temperature 98.8 F Pulse Rate 84 Respiratory 17 Rate Blood Pressure Blood Pressure 128/79 [Left] O2 Sat by Pulse 96 91 97 Oximetry - Reevaluation(s) Reevaluation #1: 03/10/22 10:25 moved to main ER for eval ED Medical Decision Making - Lab Data Result diagrams: 03/10/22 10:07 03/10/22 10:07 Critical care attestation.: If time is entered above; I have spent that time in minutes in the direct care of this critically ill patient, excluding procedure time. ED Disposition Clinical Impression: Rash and nonspecific skin eruption, Constipation Disposition: 30 STILL A PATIENT Is pt being admited?: No Does the pt Need Aspirin: No Condition: Stable Referrals: KIRSTIN CONCEPCION MD [Primary Care Provider] - 3-5 Days Time of Disposition: 17:43
[2022-03-10 10:58] LABS: Basophils # (Auto) 0.1 K/mm3 (0.0-0.1); Basophils % (Auto) 0.7 % (0.0-1.8); Eosinophils # (Auto) 0.2 K/mm3 (0.0-0.4); Eosinophils % (Auto) 1.4 % (0.0-4.3); Hematocrit 38.7 % (35.5-45.6); Hemoglobin 13.4 gm/dl (11.8-15.2); Lymphocytes # (Auto) 1.6 K/mm3 (1.2-5.4); Lymphocytes % (Auto) 12.2 % (13.4-35.0); Mean Corpuscular HGB Conc 35 % (32-34); Mean Corpuscular Volume 87 fl (84-94); Monocytes # (Auto) 1.2 K/mm3 (0.0-0.8); Monocytes % (Auto) 9.2 % (0.0-7.3); Platelet Count 332 K/mm3 (140-440); Red Blood Count 4.44 M/mm3 (3.65-5.03); Red Cell Distribution Width 13.8 % (13.2-15.2)
[2022-03-10 11:09] LABS: Alanine Aminotransferase 20 units/L (7-56); Albumin 3.8 g/dL (3.9-5); BUN/Creatinine Ratio 22; Blood Urea Nitrogen 33 mg/dL (9-20); Calcium 9.3 mg/dL (8.4-10.2); Hemolysis Index 1
[2022-03-10] MEDS ORDERED: SODIUM CHLORIDE 0.9% 1000 ML 1,000 ML IV ONE (15:45)
--- NOTE | 2022-03-10 15:59 | Emergency Department Report ---
HPI - General Chief Complaint: Skin Rash PUI?: No Time Seen by Provider: 03/10/22 08:52 - HPI HPI: 6-year-old male with history of HIV, unknown CD4 count, unknown viral load per patient's report, presents stating "I am actually just here because I need a note for work. 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 He states his rectal pain has improved and bleeding has improved significantly. He denies any abdominal pain but states he has been constipated for 1 week although he is passing flatus. Reports a mild dry cough. He denies any loss of consciousness headaches vision changes difficulty talking walking or word finding. Patient reports the lesions on his forehead have remained constant and they have not worsened and he has no new spreading lesi ons. He states "no one told me to follow-up with the Department of Health." Pain 0/10. ED Past Medical Hx - Past Medical History Previous Medical History?: Yes Hx Hypertension: No Hx CVA: No Hx Tuberculosis: Yes Hx HIV: Yes - Surgical History Past Surgical History?: No - Family History Family history: other (unknown) - Social History Smoking Status: Never Smoker Substance Use Type: Alcohol ED Review of Systems ROS: Stated complaint: BODY RASH Other details as noted in HPI Comment: All other systems reviewed and negative Constitutional: no symptoms reported Eyes: as per HPI, other (sore throat ) ENT: as per HPI Respiratory: no symptoms reported Cardiovascular: as per HPI Endocrine: no symptoms reported. denies: excessive sweating, intolerance to cold, intolerance to heat, increased hunger, increased thirst, increased urine, unexplained weight gain Gastrointestinal: as per HPI, constipation Genitourinary: as per HPI Musculoskeletal: as per HPI Skin: as per HPI Neurological: as per HPI. denies: headache, weakness, numbness, paresthesias, confusion, abnormal gait, vertigo, other Psychiatric: denies: anxiety, depression, auditory hallucinations, visual hallucinations, homicidal thoughts, suicidal thoughts, other Hematological/Lymphatic: denies: easy bleeding, easy bruising, swollen glands Physical Exam - Physical Exam Vital Signs: Vital Signs 03/10/22 03/10/22 03/10/22 08:51 10:30 10:38 Temperature 98.5 F 98.4 F Pulse Rate 96 H 76 Respiratory 14 14 Rate Blood Pressure 140/81 Blood Pressure 133/80 [Left] O2 Sat by Pulse 95 95 94 Oximetry 03/10/22 03/10/22 10:45 11:01 Temperature Pulse Rate Respiratory Rate Blood Pressure Blood Pressure [Left] O2 Sat by Pulse 96 91 Oximetry General: Gen: pt is well appearing, asleep on stretcher, easily arousable, no drooling no stridor no respiratory distress, breathing unlabored, nontoxic-appearing HEENT: Normocephalic atraumatic pupils equally round and reactive to light extraocular muscles intact sclera anicteric Neck: Full range of motion, no midline spinal tenderness palpation, no JVD, no carotid bruits, no nuchal rigidity CVS: S1-S2 regular rate and rhythm with no gallops rubs or murmurs, chest wall nontender Pulmonary: Clear to auscultation bilaterally, no wheezes rales or rhonchi Abdomen: Soft nondistended nontender no guarding or rebound tenderness, no palpable deformities or step-offs, normal active bowel sounds, no hepatosplenomegaly, no pulsatile masses, patient has small solitary umbilicated lesion at the center of his abdomen, there is no surrounding erythema, there is no drainage, no shingles no zoster : Deferred Extremities: No cyanosis no clubbing no edema, intact distal peripheral pulses, Integumentary: Skin normal, no petechia no purpura no abscess no lacerations no evidence of trauma no evidence of infection Neuro: Patient is awake alert and oriented to person place time situation, mentating well, cranial nerves II through XII intact, no focal neurodeficits, sensation grossly tact Psych: Calm cooperative, mood affect normal Physical Exam: Patient reassessed. He is asleep but easily arousable, comfortable and well- appearing, no acute distress ED Course Vital Signs 03/10/22 03/10/22 03/10/22 08:51 10:30 10:38 Temperature 98.5 F 98.4 F Pulse Rate 96 H 76 Respiratory 14 14 Rate Blood Pressure 140/81 Blood Pressure 133/80 [Left] O2 Sat by Pulse 95 95 94 Oximetry 03/10/22 03/10/22 10:45 11:01 Temperature Pulse Rate Respiratory Rate Blood Pressure Blood Pressure [Left] O2 Sat by Pulse 96 91 Oximetry - Reevaluation(s) Reevaluation #1: 03/10/22 16:03 Patient is comfortable and well-appearing, no acute distress, will continue to monitor, breathing on the ED Medical Decision Making - Lab Data Result diagrams: 03/10/22 10:07 03/10/22 10:07 - Medical Decision Making This is a 26-year-old male with multiple medical comorbidities who presents stating "I am only here to get a work note. I need a prolonged note for work for the next few weeks." He also reports constipation. Vitals are stable. He is well-appearing on examination. Solitary lesions noted to his face and a solitary lesion noted to the middle of his abdomen. Patient states "no one told me I should follow-up with anybody." Patient was informed again that per his prior ER evaluation, he was advised to follow-up with infectious diseases and the Department of Health. Patient again advised to follow-up with [facility] to also follow-up with the [facility] for further evaluation of his lesions. Diagnostic imaging here grossly unremarkable. He has mild leukocytosis but otherwise the remainder of his labs do not show any significant findings. Patient was reassessed multiple times. He denies any difficulty breathing or shortness of breath or active abdominal pain. His exam remains otherwise nonfocal except as what was aforementioned previously. No further emergent work-up warranted. All questions answered at the patient's bedside. Patient given strict verbal and written return precautions. He verbalized understanding agreement the plan of care. Critical Care Time: No Critical care attestation.: If time is entered above; I have spent that time in minutes in the direct care of this critically ill patient, excluding procedure time. ED Disposition Clinical Impression: Rash and nonspecific skin eruption, Constipation Disposition: 01 HOME / SELF CARE / HOMELESS Is pt being admited?: No Does the pt Need Aspirin: No Condition: Stable Instructions: Constipation, Adult, [id number] Additional Instructions: Follow up at the [facility] [place] this week for reevaluation of your rash and other symptoms. This is very important. Take Senokot as needed for stool softener. You may also take [id number] MiraLAX or any generic brand of MiraLAX to help bulk up and soften your stools as well. Be sure to drink plenty of fluids, specifically water, to stay hydrated. Eat food high in fiber. Take acetaminophen as needed for pain. Telephone Dr. Mari, residential construction instructor medicine physician who sees patients who require a regular primary care doctor. Emergency departments do not issue prolonged leave of absence notes for any patients for their work. Observe your symptoms very carefully. Return to the nearest emergency department as soon as possible if you develop severe or worsening pain, vomiting, any fever of 100.4 Fahrenheit or higher, inability to tolerate liquids or solids, or if any other new worrisome symptoms develop Referrals: KIRSTIN CONCEPCION MD [Primary Care Provider] - 3-5 Days ELMER MARI MD [Staff Physician] - 3-5 Days
--- NOTE | 2022-03-10 17:00 | XRay Report ---
CHEST 1 VIEW 03/10/2022 3:50 PM INDICATION / CLINICAL INFORMATION: hx of HIV, p/w cough. COMPARISON: 11/24/2021 FINDINGS: SUPPORT DEVICES: None. HEART / MEDIASTINUM: No significant abnormality. LUNGS / PLEURA: No significant pulmonary or pleural abnormality. No pneumothorax. ADDITIONAL FINDINGS: No significant additional findings. IMPRESSION: 1. No acute findings. Signer Name: Paramjit Rae MD Signed: 03/10/2022 4:56 PM Workstation Name: [id number]
--- NOTE | 2022-03-10 17:01 | XRay Report ---
ABDOMEN 1 VIEW(S) INDICATION / CLINICAL INFORMATION: hx of hiv, p/w constipation x days. COMPARISON: None available. FINDINGS: TUBES / LINES: None. BOWEL GAS PATTERN/EXTRALUMINAL GAS: No significant abnormality. No pneumatosis or secondary signs of free air. ADDITIONAL FINDINGS: No significant additional findings. IMPRESSION: 1. No acute findings. Signer Name: Paramjit Rae MD Signed: 03/10/2022 4:57 PM Workstation Name: [id number]
[2022-03-10 20:09] VITALS: BP 110/80
== END 2022-03-10 20:07 | disposition home or self-care (01) ==
LOC: ED 08:20
DX: R21 Rash and other nonspecific skin eruption (principal); K59.00 Constipation, unspecified; Z21 Asymptomatic human immunodeficiency virus [HIV] infection status; A15.9 Respiratory tuberculosis unspecified
CPT/HCPCS: 36415; 71045; 74018; 80053; 85025; 87116; 87430; 96360; 99284; J7030

== ENCOUNTER 2022-03-17 10:25 | Emergency (ER) | payer OTHER ==
--- NOTE | 2022-03-17 10:44 | Emergency Department Report ---
ED Rash HPI - HPI Stated Complaint: MONKEY POX Location: Upper Extremities, Lower Extremities Suspected Cause: Other Rash Symptoms: No Itching, No Facial Swelling, No Tongue/Oral Swelling, No Breathing Difficulties, No Choking Sensation, No Wheezing/Dyspnea, No Peeling, No Blistering, No Fever, No Lightheaded, No Malaise, No Myalgias Severity: mild Other History: 26 yo comes to ER for rash. He has been seen recently by MD staff and dx with monkey pox. He is here requesting a work note to extend time off. He works at a [employer] and he does not want to go to work with lesions. He states his employer wants a work note and they do not have a policy on returning to work p having dx of monkey pox. No new lesions. No fever. No chills. no cp. no sob. no new lesions. High risk male- intimate contact with men ED Review of Systems ROS: Stated complaint: MONKEY POX Other details as noted in HPI Comment: All other systems reviewed and negative ED Past Medical Hx - Past Medical History Previous Medical History?: Yes Hx Hypertension: No Hx CVA: No Hx Tuberculosis: Yes Hx HIV: Yes - Surgical History Past Surgical History?: Yes - Family History Family history: no significant - Social History Smoking Status: Never Smoker Substance Use Type: Alcohol - Medications Home Medications: Home Medications Medication Instructions Recorded Confirmed Last Taken Type Sennosides Tab [Senokot] 17.2 mg PO QHS #14 tablet 03/10/22 Unknown Rx Rash Exam - Exam General: Vital signs noted. No distress. Alert and acting appropriately. HEENT: No Periorbital Edema, No Conjuctival Injection, No Chemosis, No Perioral Edema, No Tongue Edema, No Uvular Edema, No Compromised Airway, No Drooling Lungs: Yes Good Air Exchange (Normal Breath Sounds), No Wheezes, No Ronchi, No Stridor, No Cough, No Labored Respirations, No Retractions, No Use of Accessory Muscles, No Other Abnormal Lung Sounds Heart: Yes Regular, No Murmur Skin: Yes Other (lesions prevously dx as monkey pox on arms and legs; no oral or ocular lesions; the wounds are in various stages of healing; they are dry - not draining. they are round (pox appearing) with edges turning inward. ) Other: Positive: Abdomen Normal, Neurologic Normal, Musculoskeletal Normal ED Medical Decision Making - Medical Decision Making Prior ER visits in EMR reviewed VS normal as documented manually by RN- I've asked them to enter into EMR no fever no hypotension no tachycardia Pt has no new symptoms. He has been out of work for 2 weeks and is here requesting another week off. I've educated pt on follow up with PCP. I told him the ER does not take pts out of work for extended periods of time. He has been given work note for today and will see pcp. He has also been given a copy of the CDC monkey pox guidelines. - Differential Diagnosis rash Critical care attestation.: If time is entered above; I have spent that time in minutes in the direct care of this critically ill patient, excluding procedure time. ED Disposition Clinical Impression: Rash and nonspecific skin eruption Disposition: 01 HOME / SELF CARE / HOMELESS Is pt being admited?: No Does the pt Need Aspirin: No Condition: Stable Instructions: Rash, Adult Referrals: KIRSTIN CONCEPCION MD [Staff Physician] - 3-5 Days Forms: Work/School Release Form(ED) Time of Disposition: 10:41
== END 2022-03-17 12:00 | disposition home or self-care (01) ==
LOC: ED 10:25
DX: R21 Rash and other nonspecific skin eruption (principal); F10.20 Alcohol dependence, uncomplicated
CPT/HCPCS: 99282

== ENCOUNTER 2022-04-20 13:18 | Emergency (ER) | payer OTHER ==
[2022-04-20 13:42] VITALS: BP 120/75
== END 2022-04-20 19:50 | disposition left against medical advice (07) ==
LOC: ED 13:18
DX: N39.0 Urinary tract infection, site not specified (principal); R10.2 Pelvic and perineal pain; Z53.21 Procedure and treatment not carried out due to patient leaving prior to being seen by health care provider

== ENCOUNTER 2022-04-21 22:45 | Emergency (ER) | payer OTHER ==
[2022-04-22] MEDS ORDERED: predniSONE 20 MG TAB PO ONE (03:32)
[2022-04-22 03:52] LABS: Color,Urine Yellow (Yellow)
[2022-04-22 03:59] LABS: Bacteria,Urine 1+ /HPF (Negative); Mucus,Urine FEW /HPF
[2022-04-22 04:07] LABS: Hematocrit 41.6 % (35.5-45.6); Hemoglobin 14.5 gm/dl (11.8-15.2); Mean Corpuscular HGB Conc 35 % (32-34); Mean Corpuscular Volume 88 fl (84-94); Platelet Count 227 K/mm3 (140-440); Red Blood Count 4.74 M/mm3 (3.65-5.03); Red Cell Distribution Width 12.4 % (13.2-15.2)
[2022-04-22 04:23] LABS: BUN/Creatinine Ratio 7; Blood Urea Nitrogen 6 mg/dL (9-20); Calcium 9.5 mg/dL (8.4-10.2); Hemolysis Index 7
[2022-04-22 04:48] LABS: Band Neutrophils # (Manual) 0.1 K/mm3; Basophils % (Manual) 0 % (0.0-1.8); Total Cells Counted 100
[2022-04-22 04:49] LABS: Platelet Estimate Consistent w Auto; RBC Morphology Normal
[2022-04-22] MEDS ORDERED: AZITHROMYCIN 250 MG TAB PO ONE (04:56)
[2022-04-22] MEDS ORDERED: LIDOCAINE-MPF (1%) 10 MG/1 ML VIAL 5 ML INFILTRATI ONE (04:56)
--- NOTE | 2022-04-22 05:02 | Emergency Department Report ---
ED General Adult HPI - General Chief complaint: Urogenital-Male Stated complaint: UTI,PELVIC PAIN Time Seen by Provider: 04/22/22 03:23 Source: patient Mode of arrival: Ambulatory Limitations: No Limitations, Language Barrier - History of Present Illness Initial comments: 27-year-old male past medical history HIV reports that the ER with complaint of dysuria with clear discharge and penile swelling as well as groin pain. Patient reports his symptoms started on with a burning in discharge. And the swelling of his penis distal shaft started yesterday. Patient reports no fever no chills. No abdominal pain. No testicle pain. Patient reports no unprotected sex recently. Only oral sex. Patient does report his spouse recently had monkey Pox last month and was quarantining. - Related Data Previous Rx's Medication Instructions Recorded Last Taken Type Sennosides Tab [Senokot] 17.2 mg PO QHS #14 tablet 03/10/22 Unknown Rx Acetaminophen/Codeine [Tylenol 1 tab PO Q6H PRN 2 Days #8 tab 04/22/22 Unknown Rx /Codeine # 3 tab] Doxycycline Hyclate 100 mg PO BID 7 Days #14 cap 04/22/22 Unknown Rx Ibuprofen [Motrin] 800 mg PO Q8HR PRN 6 Days #18 04/22/22 Unknown Rx tablet Allergies Allergy/AdvReac Type Severity Reaction Status Date / Time No Known Allergies Allergy Verified 04/20/22 13:42 ED Review of Systems ROS: Stated complaint: UTI,PELVIC PAIN Other details as noted in HPI Comment: All other systems reviewed and negative Genitourinary: discharge, other (Penile swelling) ED Past Medical Hx - Past Medical History Previous Medical History?: Yes Hx Hypertension: No Hx CVA: No Hx Tuberculosis: Yes Hx HIV: Yes - Social History Smoking Status: Never Smoker Substance Use Type: Alcohol - Medications Home Medications: Home Medications Medication Instructions Recorded Confirmed Last Taken Type Sennosides Tab [Senokot] 17.2 mg PO QHS #14 tablet 03/10/22 Unknown Rx Acetaminophen/Codeine [Tylenol 1 tab PO Q6H PRN 2 Days #8 tab 04/22/22 Unknown Rx /Codeine # 3 tab] Doxycycline Hyclate 100 mg PO BID 7 Days #14 cap 04/22/22 Unknown Rx Ibuprofen [Motrin] 800 mg PO Q8HR PRN 6 Days #18 04/22/22 Unknown Rx tablet ED Physical Exam - General Limitations: Language Barrier General appearance: alert, in no apparent distress - Head Head exam: Present: atraumatic, normocephalic - Eye Eye exam: Present: normal appearance - ENT ENT exam: Present: mucous membranes moist - Neck Neck exam: Present: normal inspection - Respiratory Respiratory exam: Present: normal lung sounds bilaterally. Absent: respiratory distress - Cardiovascular Cardiovascular Exam: Present: regular rate, normal rhythm. Absent: systolic mur mur, diastolic murmur, rubs, gallop - GI/Abdominal GI/Abdominal exam: Present: soft, normal bowel sounds - Rectal Rectal exam: Present: deferred - exam: Present: other (Left inguinal lymph no tenderness with swelling present) External exam: Present: swelling (Distal end of penis shaft with discharge.) - Extremities Exam Extremities exam: Present: normal inspection - Back Exam Back exam: Present: normal inspection - Neurological Exam Neurological exam: Present: alert, oriented X3 - Psychiatric Psychiatric exam: Present: normal affect, normal mood - Skin Skin exam: Present: warm, dry, intact, normal color. Absent: rash ED Course Vital Signs 04/21/22 04/22/22 23:32 05:49 Temperature 99.8 F H Pulse Rate 86 87 Respiratory 18 14 Rate Blood Pressure 130/77 132/81 [Right] O2 Sat by Pulse 99 100 Oximetry ED Medical Decision Making - Lab Data Result diagrams: 04/22/22 03:50 04/22/22 03:50 - Medical Decision Making 27-year-old male past medical history HIV reports that the ER with complaint of dysuria with clear discharge and penile swelling as well as groin pain. Patient reports his symptoms started on with a burning in discharge. And the swelling of his penis distal shaft started yesterday. Patient reports no fever no chills. No abdominal pain. No testicle pain. Patient reports no unprotected sex recently. Only oral sex. Patient does report his spouse recen berto had monkey Pox last month and was quarantining. On physical exam distal penile shaft swelling noted with drainage and tenderness. Left inguinal lymph no with tenderness slight swelling. No rashes or lesions noted throughout body. Labs are unremarkable. Patient prophylactically treated for gonorrhea chlamydia. Patient received pain medicine here in ER. Patient informed the possibility of an STD infection versus [employer] as his sexual partner recently had [employer] within a 4-week period. Patient informed to monitor for signs and symptoms of mild hypoxia. Patient informed that to have follow-up visit with his primary care provider for further STD evaluation. Patient agrees with plan of care and verbalized understanding. Decrease in pain reported by patient. Patient stable for discharge home. Vital Signs 04/21/22 04/22/22 23:32 05:49 Temperature 99.8 F H Pulse Rate 86 87 Respiratory 18 14 Rate Blood Pressure 130/77 132/81 [Right] O2 Sat by Pulse 99 100 Oximetry Lab Results 04/22/22 04/22/22 04/22/22 Range/Units 03:45 03:50 03:50 WBC 5.4 (4.5-11.0) K/mm3 RBC 4.74 (3.65-5.03) M/mm3 Hgb 14.5 (11.8-15.2) gm/dl Hct 41.6 (35.5-45.6) % MCV 88 (84-94) fl MCH 31 (28-32) pg MCHC 35 H (32-34) % RDW 12.4 L (13.2-15.2) % Plt Count 227 (140-440) K/mm3 Baso % (Auto) [employer] Add Manual Diff Complete Total Counted 100 Seg Neuts % (Manual) 72.0 H (40.0-70.0) % Band Neutrophils % 1.0 % Lymphocytes % (Manual) 13.0 L (13.4-35.0) % Reactive Lymphs % (Man) 0 % Monocytes % (Manual) 12.0 H (0.0-7.3) % Eosinophils % (Manual) 2.0 (0.0-4.3) % Basophils % (Manual) 0 (0.0-1.8) % Metamyelocytes % 0 % Myelocytes % 0 % Promyelocytes % 0 % Blast Cells % 0 % Nucleated RBC % Not Reportable Seg Neutrophils # Man 3.9 (1.8-7.7) K/mm3 Band Neutrophils # 0.1 K/mm3 Lymphocytes # (Manual) 0.7 L (1.2-5.4) K/mm3 Abs React Lymphs (Man) 0.0 K/mm3 Monocytes # (Manual) 0.6 (0.0-0.8) K/mm3 Eosinophils # (Manual) 0.1 (0.0-0.4) K/mm3 Basophils # (Manual) 0.0 (0.0-0.1) K/mm3 Metamyelocytes # 0.0 K/mm3 Myelocytes # 0.0 K/mm3 Promyelocytes # 0.0 K/mm3 Blast Cells # 0.0 K/mm3 WBC Morphology Not Reportable Hypersegmented Neuts Not Reportable Hyposegmented Neuts Not Reportable Hypogranular Neuts Not Reportable Smudge Cells Not Reportable Toxic Granulation Not Reportable Toxic Vacuolation Not Reportable Dohle Bodies Not Reportable Pelger-Huet Anomaly Not Reportable Trae Rods Not Reportable Platelet Estimate Consistent w auto Clumped Platelets Not Reportable Plt Clumps, EDTA Not Reportable Large Platelets Not Reportable Giant Platelets Not Reportable Platelet Satelliting Not Reportable Plt Morphology Comment Not Reportable RBC Morphology Normal Dimorphic RBCs Not Reportable Polychromasia Not Reportable Hypochromasia Not Reportable Poikilocytosis Not Reportable Anisocytosis Not Reportable Microcytosis Not Reportable Macrocytosis Not Reportable Spherocytes Not Reportable Pappenheimer Bodies Not Reportable Sickle Cells Not Reportable Target Cells Not Reportable Tear Drop Cells Not Reportable Ovalocytes Not Reportable Helmet Cells Not Reportable Ambrocio-[place]ypress Bodies Not Reportable [place] Rings Not Reportable Woody Cells Not Reportable Bite Cells Not Reportable Crenated Cell Not Reportable Elliptocytes Not Reportable Acanthocytes (Spur) Not Reportable Rouleaux Not Reportable Hemoglobin C Crystals Not Reportable Schistocytes Not Reportable Malaria parasites Not Reportable Chris Bodies Not Reportable Hem Pathologist Commnt No Sodium 134 L (137-145) mmol/L Potassium 3.6 (3.6-5.0) mmol/L Chloride 96.3 L (98-107) mmol/L Carbon Dioxide 28 (22-30) mmol/L Anion Gap 13 mmol/L BUN 6 L (9-20) mg/dL Creatinine 0.9 (0.8-1.3) mg/dL Estimated GFR > 60 ml/min BUN/Creatinine Ratio 7 % Glucose 84 (75-100) mg/dL Calcium 9.5 (8.4-10.2) mg/dL Urine Color Yellow (Yellow) Urine Turbidity Clear (Clear) Specific [place] (Man) 1.015 (1.003-1.030) Ur Protein (Man) 1+ (Negative) mg/dL Ur Ketones (Man) Negative (Negative) Ur Nitrite (Man) Negative (Negative) Urine Bilirubin (Man) Negative (Negative) Leukocyte Esterase (Man) Negative (Negative) Urine WBC (Auto) 106.0 H (0.0-6.0) /HPF Urine RBC (Auto) 9.0 (0.0-6.0) /HPF Urine Bacteria (Auto) 1+ (Negative) /HPF Urine RBC (Manual) Trace (Negative) Urine Mucus Few /HPF Critical care attestation.: If time is entered above; I have spent that time in minutes in the direct care of this critically ill patient, excluding procedure time. ED Disposition Clinical Impression: Penile swelling, Dysuria Disposition: 01 HOME / SELF CARE / HOMELESS Is pt being admited?: No Condition: Stable Instructions: Dysuria Prescriptions: Doxycycline Hyclate 100 mg PO BID 7 Days #14 cap Ibuprofen [Motrin] 800 mg PO Q8HR PRN 6 Days #18 tablet PRN Reason: Pain , Severe (7-10) Acetaminophen/Codeine [Tylenol /Codeine # 3 tab] 1 tab PO Q6H PRN 2 Days #8 tab PRN Reason: Pain , Severe (7-10) Referrals: MERON MÉNDEZ MD [Staff Physician] - 3-5 Days ROBIN MARTELL MD [Staff Physician] - 3-5 Days ELMER MARI MD [Staff Physician] - 3-5 Days Forms: Accompanied Note, Work/School Release Form(ED)
[2022-04-22] MEDS ORDERED: HYDROcodone/ACETAMINOPHEN 5-325 MG TAB PO ONE (05:21)
[2022-04-22 06:01] VITALS: BP 132/81
== END 2022-04-22 06:13 | disposition home or self-care (01) ==
LOC: ED 22:45
DX: N48.29 Other inflammatory disorders of penis (principal); R30.0 Dysuria; F10.20 Alcohol dependence, uncomplicated
CPT/HCPCS: 36415; 80048; 81001; 85007; 85025; 96372; 99283; J0696; J3490